=== PATIENT | female | born 1955 | race Caucasian/White ===

== ENCOUNTER → 2020-02-29 14:52 | Outpatient (CLI) | payer MEDICARE, OTHER, SELFPAY ==
--- NOTE | 2020-02-29 | DI.RAD.S_ITS ---
PROCEDURE: XR HIP W PEL IF DONE LT MIN 4V INDICATIONS: HIP PAIN TECHNIQUE: AP pelvis with lateral view(s) of the left and right hip(s). COMPARISON: None. FINDINGS: Bones: No fracture. Lower lumbar spondylosis and facet arthropathy. Mild bilateral hip joint degeneration. Soft tissues: The visualized bowel gas pattern is normal. No suspicious soft tissue calcifications. IMPRESSION: Mild bilateral hip joint degeneration. Lower lumbar spondylosis Dictated by: Danielito Bhatia M.D. on 02/29/2020 at 15:43 Approved by: Danielito Bhatia M.D. on 02/29/2020 at 15:46
== END ==
PROVIDERS: PCP Family Medicine; Referring Provider Family Medicine; Visit Provider Family Medicine
DX: M25.552 Pain in left hip (principal); M16.0 Bilateral primary osteoarthritis of hip; M47.816 Spondylosis without myelopathy or radiculopathy, lumbar region
CPT/HCPCS: 73522

== ENCOUNTER → 2020-03-05 15:21 | Outpatient (CLI) | payer MEDICARE, OTHER, SELFPAY ==
--- NOTE | 2020-03-05 15:24 | DI.RAD.S_ITS ---
PROCEDURE: XR LUMBAR SPINE 2-3V INDICATIONS: LUMBAR PAIN, RADIATING LISSA DOWN HIP AND LEG TECHNIQUE: 3 views of the lumbar spine were acquired. COMPARISON: None. FINDINGS: Bones: 5 [id number] vertebra are present. There is grade 1 anterolisthesis of L4 over L5. Vertebral body heights are maintained with no evidence of compression fracture. The L4-5 and L5-S1 disc spaces are narrowed. There is facet arthrosis at L4-5 and L5-S1. No focal osseous lesions. The sacroiliac joints are normal. Soft tissues: Overlying bowel gas pattern is normal. No suspicious soft tissue calcifications. IMPRESSION: 1. Facet arthrosis at L4-5 and L5-S1 causing grade 1 anterolisthesis of L4-5. 2. Disc space narrowing of L4-5 and L5-S1 consistent with disc disease at these levels. 3. No acute osseous abnormality. Dictated by: Mendel Garcia M.D. on 03/05/2020 at 17:18 Approved by: Mendel Garcia M.D. on 03/05/2020 at 17:21
== END ==
PROVIDERS: PCP Family Medicine; Referring Provider Family Medicine; Visit Provider Family Medicine
DX: M54.5 Low back pain (principal); M47.26 Other spondylosis with radiculopathy, lumbar region; M47.27 Other spondylosis with radiculopathy, lumbosacral region; M43.16 Spondylolisthesis, lumbar region; M48.061 Spinal stenosis, lumbar region without neurogenic claudication; M48.07 Spinal stenosis, lumbosacral region
CPT/HCPCS: 72100

== ENCOUNTER → 2020-03-16 06:26 | Outpatient (CLI) | payer MEDICARE, OTHER, SELFPAY ==
--- NOTE | 2020-03-16 | DI.MRI.S_ITS ---
PROCEDURE: MR LUMBAR SPINE WO CON INDICATIONS: Low back pain TECHNIQUE: Noncontrast sagittal T1 spin echo and T2 fast echo, sagittal STIR, axial T1 and T2 fast spin echo through the lumbar spine. In cases with scoliosis, additional coronal T2 fast spin echo may be performed. COMPARISON: [facility], CR, XR LUMBAR SPINE 2-3V, 03/05/2020, 15:27. FINDINGS: Image quality: Excellent. Alignment and Curvature: 5 lumbar type vertebral bodies are present by plain film. There is mild, grade 1 retrolisthesis of L2 on L3 and L3 on L4. Mild grade 1 anterolisthesis of L4 on L5. Bone Marrow: Marrow is of normal overall signal. No acute vertebral body compression fractures. Mild reactive signal within the endplates adjacent to the L1-L2, L2-L3, L3-L4, L4-L5, and L5-S1 intervertebral discs. There is a well-circumscribed 12 mm high T2 intensity focus within the right L4 pedicle, consistent with a bone cyst. Spinal Cord: Conus medullaris terminates at the lower L1 level. Visualized cord demonstrates normal signal and size. Paraspinous Soft Tissues: No paravertebral masses. L1-L2: Normal appearance. L2-L3: Mild disc height loss and desiccation. Mild diffuse disc bulge. Mild facet and ligamentum flavum hypertrophy. Mild canal stenosis. Mild bilateral foraminal stenosis. L3-L4: Mild disc height loss. Moderate disc desiccation. Mild diffuse disc bulge with superimposed broad-based left posterolateral protrusion. Mild facet and ligamentum flavum hypertrophy. Mild canal stenosis. Moderate subarticular foraminal stenosis bilaterally. L4-L5: Moderate disc height loss and desiccation. Mild diffuse disc bulge. Severe bilateral facet hypertrophy. There is a periarticular cyst arising from the left facet joint, measuring 15 mm transverse by 10 mm anteroposterior, which protrudes into the left lateral recess. There is moderate ligamentum flavum hypertrophy. There is moderate canal stenosis. There is moderate left greater than right foraminal stenosis. There is compression and anterior deviation of the left L5 nerve root within the lateral recess. L5-S1: Moderate disc height loss and desiccation. Mild diffuse disc bulge. Mild bilateral facet hypertrophy. Mild canal stenosis. Mild bilateral foraminal stenosis. IMPRESSION: 1. Multilevel degenerative disc and facet disease, as well as ligamentum flavum hypertrophy and epidural lipomatosis. 2. Mild multilevel canal stenoses. Multilevel foraminal stenoses, worst at L3-L4 and L4-L5 where there are moderate foraminal stenosis. 3. Periarticular cyst arising from the left L4-L5 facet joint, which causes left lateral recess stenosis associated with compression and deviation of the left L5 nerve root as described above. Recommend correlation with clinical symptoms to ascertain relevance of this finding. Dictated by: Norma Carney M.D. on 03/16/2020 at 8:53 Approved by: Norma Carney M.D. on 03/16/2020 at 9:04
== END ==
PROVIDERS: PCP Family Medicine; Referring Provider Family Medicine; Visit Provider Family Medicine
DX: M54.5 Low back pain (principal); M51.36 Other intervertebral disc degeneration, lumbar region; E88.2 Lipomatosis, not elsewhere classified; M48.061 Spinal stenosis, lumbar region without neurogenic claudication
CPT/HCPCS: 72148

== ENCOUNTER → 2020-04-15 13:14 | Outpatient (CLI) | payer MEDICARE, OTHER, SELFPAY ==
[2020-04-15 13:46] LABS: COVID19 -Nasal RAPID Negative (Negative)
== END ==
PROVIDERS: PCP Family Medicine; Visit Provider Surgery
DX: Z20.822 Contact with and (suspected) exposure to COVID-19 (principal); Z01.812 Encounter for preprocedural laboratory examination
CPT/HCPCS: 87635; C9803

== ENCOUNTER 2020-04-18 07:28 | Day surgery (SDC) | payer MEDICARE, OTHER, SELFPAY ==
[2020-04-18] VITALS (7 sets, daily range): BP systolic 110–129; BP diastolic 67–80; PULSE 57–78; RESP 11–18; TEMP 36.6–37.2; O2SAT 94–98; BMI 21.2
[2020-04-18] MEDS: LACTATED RINGERS 1,000 ML 200 ML IV (08:15)
--- NOTE | 2020-04-18 08:27 | PM.HP.1 ---
History of Present Illness History of Present Illness Date Patient Seen: 04/18/20 Time Patient Seen: 08:28 Chief complaint: SDC Narrative: The patient presents for colorectal sreening.They have had multiple prior colonoscopies most recently 5 yrs ago significant for polyps.. No personal or family history of colon cancer. On further history denies any recent gastrointestinal symptoms. No nausea, vomiting, abdominal pain, loss of appetite, unexplained weight loss, change in bowel habits, diarrhea, constipation, melena, hematochezia, or bright red blood per rectum. Patient History Medical History Abnormal Pap smear of cervix Basal cell carcinoma Colon polyps Diabetes mellitus Hearing loss Hyperlipidemia Latent tuberculosis (~04/2010) Osteoporosis Ovarian cyst Squamous cell carcinoma Family & Social History Social History: household members none Tobacco & Substance use: Smoking Status Never smoker alcohol intake current alcohol intake frequency holiday/special occasion Substance Use Type marijuana Meds Home Medications and Allergies Home Medications Medication Instructions Recorded Confirmed Type atorvastatin 10 mg tablet 10 mg PO DAILY 03/14/20 04/18/20 History diazepam 10 mg tablet See Rx Instructions .ROUTE 03/14/20 04/18/20 History .COMPLEX PRN metformin 750 mg tablet,extended 750 mg PO BID 03/14/20 04/18/20 History release 24 hr olopatadine 0.1 % eye drops 2 drp EYE-BOTH BID PRN ml 03/14/20 04/18/20 History rizatriptan 10 mg disintegrating See Rx Instructions PO .COMPLEX PRN 03/14/20 04/18/20 History tablet Calcium 600 600 mg PO BID 04/18/20 04/18/20 History Ocuvite 1 cap PO DAILY 04/18/20 04/18/20 History Allergies Allergy/AdvReac Type Severity Reaction Status Date / Time morphine AdvReac Mild ITCHING Verified 04/18/20 07:38 Review of Systems Review of Systems Narrative: A 10 point review of systems is negative except as noted in the HPI Exam Vital Signs (past 8 hours): - 04/18/20 07:44 Temperature 98.9 F Pulse Rate 72 Respiratory Rate 18 Blood Pressure 126/80 Pulse Oximetry 97 Oxygen Delivery Method Room Air Narrative Exam Narrative: General-no acute distress, well nourished adult woman HEENT-moist mucous membranes, no scleral icterus Neck-supple, no lymphadenopathy Chest- non labored respirations, clear to auscultation bilaterally Cardiac-regular rate no peripheral edema Abdomen-soft, nontender, non distended Extremities-warm, well perfused Neurological-alert and oriented, no focal deficits Assessment & Plan Assessment & Plan narrative: The patient requires colorectal screening and colonoscopy is recommended. Technical details were discussed. Risks, benefits, alternatives explained. Risks including but not limited to myocardial infarction, aspiration, bleeding, pain, missed lesion, incomplete examination, need for further radiographic studies, colonic perforation, and need for major abdominal surgery were discussed. All questions were answered to their satisfaction, and they are in agreement with this plan.
[2020-04-18] MEDS: fentaNYL 250 MCG/5 ML INJ IV (08:58)
[2020-04-18] MEDS: MIDAZOLAM 5 MG/5 ML VIAL IV (08:58)
--- NOTE | 2020-04-18 09:20 | PM.OP.ENDO ---
Operative Date/Time/Diagnoses Date of procedure: 04/18/20 Time of procedure: 09:20 Pre-op diagnosis: personal history of colonic polys Post-op diagnosis: same Procedure & Clinicians Study performed: colonoscopy Indications: personal history of colonic polyps Surgeon: Kian Trujillo Procedure Notes Procedure in detail: Medications: Conscious sedation using 10mg IV midazolam and 300mcg IV of fentanyl The history and physical was performed/updated and the patient is ASA class is 2. The procedure was discussed in detail with the patient. Potential risks complications including infection, bleeding, missed diagnosis, perforation, need for surgery, and were explained. Their questions were answered and informed consent was obtained. Patient was brought to the procedure room and placed standard monitoring equipment. The patient's vital signs were monitored continuously throughout the entire procedure. Prior to starting time-out was performed. The patient was placed in the left lateral recumbent position. Procedural sedation was administered. Examination began with a thorough inspection of the perianal area there was no evidence of fissures, fistulae, external hemorrhoids or cutaneous malignancy. The colonoscopy scope was then placed into the anal canal and was advanced to the cecum, which was identified by the ileocecal valve, the appendiceal orifice and the confluence of the taenia. The scope was then slowly withdrawn examining colon thoroughly in all directions, irrigating it of any residual stool. No masses polyps Previous cecal tattoo observed Grade 2 internal The patient tolerated the procedure well. They will be discharged once criteria are met. The prep was of good/excellent quality. The withdrawl time was 9 minutes. The sedation time was 37 minutes. Findings: internal hemorrhoids Specimen(s): none sent Complications: none Impression: Normal colonoscopy Post-procedure Recommendations: Colonscopy in 10 years Disposition: same day surgery
[2020-04-18] MEDS: SODIUM CHLORIDE 0.9% 1,000 ML 84 ML IV (09:27)
--- NOTE | 2020-04-18 09:44 | SUR.PHASEII ---
Patient c/o nausea and asking for saltine crackers. No active emesis noted. Orders received for zofran. Denies any pain at this time.
[2020-04-18] MEDS: ONDANSETRON 4 MG/2 ML INJ IV (09:48)
--- NOTE | 2020-04-18 10:04 | SUR.PHASEII ---
Patient states that nausea is better and she is ready to be discharged home.
== END 2020-04-18 10:03 | disposition home or self-care (01) ==
PROVIDERS: PCP Family Medicine; Referring Provider Family Medicine; Visit Provider Surgery
PROC: 0DJD8ZZ Inspection of Lower Intestinal Tract, Via Natural or Artificial Opening Endoscopic (ICD-10-PCS; CPT 45378; principal; 2020-04-18 08:30)
DX: Z12.11 Encounter for screening for malignant neoplasm of colon (principal); Z86.010 Personal history of colon polyps; K64.1 Second degree hemorrhoids
CPT/HCPCS: G0105; 99152; 99153; J2250; J2405; J3010

== ENCOUNTER → 2020-04-26 11:53 | Outpatient (CLI) | payer MEDICARE, OTHER, SELFPAY ==
[2020-04-26 13:45] LABS: Alanine Aminotransferase 14 IU/L (<35); Albumin 4.4 g/dL (3.5-5.0); Albumin Globulin Ratio 1.8 (1.0-2.8); Alkaline Phosphatase 45 U/L (38-126); Aspartate Aminotransferase 22 IU/L (14-36); BUN Creatinine Ratio 39.3 (6-22); Bilirubin Total 0.7 mg/dL (0.2-1.3); Blood Urea Nitrogen 22 mg/dL (7-17); Carbon Dioxide 32 mmol/L (22-32); Chloride 100 mmol/L (98-107); Cholesterol 133 mg/dL (140-199); Estimated Glomerular Filt Rate > 60.0 mL/min (>60); Globulin 2.4 g/dL (1.7-4.1); Glucose 113 mg/dL (80-110); HDL Cholesterol 66 mg/dL (40-60); HEMOLYSIS < 15 (0-50); LDL Cholesterol Calculated 50 mg/dL (<100); Potassium 4.2 mmol/L (3.4-5.1); Sodium 136 mmol/L (137-145); Total Protein 6.8 g/dL (6.3-8.2); Triglycerides 85 mg/dL (35-150)
== END ==
PROVIDERS: PCP Family Medicine; Referring Provider Family Medicine; Visit Provider Family Medicine
DX: E11.9 Type 2 diabetes mellitus without complications (principal); E78.5 Hyperlipidemia, unspecified
CPT/HCPCS: 36415; 80053; 80061; 83036

== ENCOUNTER → 2020-05-23 13:51 | Outpatient (CLI) | payer MEDICARE, OTHER, SELFPAY ==
--- NOTE | 2020-05-23 13:53 | DI.RAD.S_ITS ---
PROCEDURE: XR ANKLE LT MIN 3V INDICATIONS: history of left ankle subchondral cyst, ankle pain, impingem TECHNIQUE: 3 views of the ankle were acquired. COMPARISON: None. FINDINGS: Bones: No acute fractures or dislocations. Smooth, well corticated osseous density adjacent to the tip of the lateral malleolus. Ankle mortise is normally aligned. No suspicious bony lesions. Soft tissues: No tibiotalar joint effusion. Achilles tendon appears normal. IMPRESSION: Smooth, well corticated osseous density adjacent to the tip of the lateral malleolus likely related to remote injury versus bony ossicle. Dictated by: Rick Brandt [facility] Interpreted: Daryn Lerma MD on 05/23/2020 at 14:19 Approved by: Daryn Lerma M.D. on 05/23/2020 at 16:15
== END ==
PROVIDERS: PCP Family Medicine; Referring Provider Family Medicine; Visit Provider Family Medicine
DX: M81.0 Age-related osteoporosis without current pathological fracture (principal); E11.9 Type 2 diabetes mellitus without complications; Z82.62 Family history of osteoporosis; M25.872 Other specified joint disorders, left ankle and foot; M19.90 Unspecified osteoarthritis, unspecified site
CPT/HCPCS: 73610; 77080

== ENCOUNTER → 2020-08-10 07:44 | Outpatient (CLI) | payer MEDICARE, OTHER, SELFPAY ==
--- NOTE | 2020-08-10 | DI.MRI.S_ITS ---
PROCEDURE: MR ANKLE LT WO CON INDICATIONS: pain in left ankle and joints of left foot TECHNIQUE: Noncontrast sagittal T1 spin echo and T2 fast spin echo with fat saturation, axial proton density fast spin echo and T2 fast spin echo with fat saturation, coronal T1 spin echo and T2 fast spin echo with fat saturation through the ankle/hindfoot. COMPARISON: [facility], CR, XR ANKLE 3+ VIEWS LEFT, 08/03/2020, 8:45. FINDINGS: Bones and joints: Bones: No marrow contusions or fractures. Coalitions: No hindfoot coalitions. Talar dome: Subchondral marrow edema present within the medial talar dome measuring up to 6 mm in the AP dimension as seen on sagittal pulse sequences. This measures approximately 5 mm on coronal pulse sequences. No definite in situ fragment is seen. Other: No pathologic joint effusions. Medial structures: Posterior tibialis: Intact. Mild tenosynovitis Flexor digitorum longus: Intact. Mild tenosynovitis Flexor hallucis longus: Intact. Posterior tibial neurovascular bundle: Normal. Deltoid ligament complex: Intact. Spring ligament: Intact. Lateral structures: Anterior talofibular ligament: Intact. Calcaneofibular ligament: Mildly thickened suggestive of low-grade chronic sprain. Posterior talofibular ligament: Intact. Anterior tibiofibular ligament: Intact. Posterior tibiofibular ligament: Intact. Intermalleolar ligament: Intact. Tibiofibular syndesmosis: Normal. Peroneus longus: Intact. Peroneus brevis: Thickened appearance, with early longitudinal split tear and tendinopathy at the level of the tip the lateral malleolus. Bony peroneal tubercle and retrotrochlear prominence: Normal. Sinus tarsi: Normal. Anterior structures: Tibialis anterior: Intact. Extensor hallucis longus: Intact. Extensor digitorum longus: Intact. Dorsal talonavicular ligament: Intact. Posterior and plantar structures: Achilles tendon: Minimal distal thickening which is likely chronic tendinosis. There is mild retrocalcaneal bursal fluid. There is also ganglion cyst or synovial cyst at the posterior aspect of the subtalar joint for example image 11/6. Plantar fascia: Minimal medial band plantar fasciitis. This finding technically age unknown. Muscles: No abductor digiti quinti muscle atrophy to suggest Winters neuropathy. IMPRESSION: 6 mm subchondral signal changes involving the medial talar dome, suggestive of early osteoarthritis versus posttraumatic osteochondral lesion of the talus Peroneus brevis tendinopathy and early longitudinal split tearing at the level of the tip the lateral malleolus. Mild posterior tibialis and flexor digitorum longus tenosynovitis. Minimal distal Achilles tendinosis Age-indeterminate minimal medial band plantar fasciitis. Low-grade chronic sprain of the calcaneofibular ligament. Focal fluid collection, possibly ganglion or synovial cyst at the posterior aspect of the subtalar joint. The actual clinical significance is unknown. Please correlate clinically for signs of posterior impingement. Dictated by: Danielito Bhatia M.D. on 08/10/2020 at 9:13 Approved by: Danielito Bhatia M.D. on 08/10/2020 at 9:29
== END ==
PROVIDERS: PCP Family Medicine; Referring Provider Orthopaedic Surgery Foot and Ankle Surgery; Visit Provider Orthopaedic Surgery Foot and Ankle Surgery
DX: M25.572 Pain in left ankle and joints of left foot (principal); S93.412A Sprain of calcaneofibular ligament of left ankle, initial encounter; M65.872 Other synovitis and tenosynovitis, left ankle and foot; S96.812A Strain of other specified muscles and tendons at ankle and foot level, left foot, initial encounter
CPT/HCPCS: 73721

== ENCOUNTER → 2020-08-10 08:39 | Outpatient (CLI) | payer MEDICARE, OTHER, SELFPAY ==
[2020-08-10 10:12] LABS: Hemoglobin A1C% w Est Avg Glu 6.7 % (4.0-6.0)
== END ==
PROVIDERS: PCP Family Medicine; Referring Provider Family Medicine; Visit Provider Family Medicine
DX: E11.9 Type 2 diabetes mellitus without complications (principal)
CPT/HCPCS: 36415; 83036

== ENCOUNTER → 2020-08-18 10:37 | Outpatient (CLI) | payer MEDICARE, OTHER, SELFPAY ==
[2020-08-18 13:06] LABS: BUN Creatinine Ratio 40.3 (6-22); Blood Urea Nitrogen 25 mg/dL (7-17); Calcium 9.4 mg/dL (8.4-10.2); Carbon Dioxide 28 mmol/L (22-32); Chloride 102 mmol/L (98-107); Estimated Glomerular Filt Rate > 60.0 mL/min (>60); Glucose 116 mg/dL (80-110); Potassium 4.5 mmol/L (3.4-5.1); Sodium 136 mmol/L (137-145)
[2020-08-18 13:07] LABS: Alanine Aminotransferase 16 IU/L (<35); Albumin 3.9 g/dL (3.5-5.0); Albumin Globulin Ratio 1.9 (1.0-2.8); Alkaline Phosphatase 57 U/L (38-126); Aspartate Aminotransferase 23 IU/L (14-36); Bilirubin Total 0.3 mg/dL (0.2-1.3); Globulin 2.1 g/dL (1.7-4.1); HEMOLYSIS < 15 (0-50)
[2020-08-18 13:36] LABS: TSH w/ Reflex to FT4 1.87 uIU/mL (0.47-4.68)
[2020-08-19 03:26] LABS: Vitamin D 25 Hydroxy (D3) 56.7 ng/mL (30.0-100.0)
[2020-08-19 03:38] LABS: Calcium Urine Random 26.8 mg/dL
[2020-08-20 10:19] LABS: Tissue Transglutaminase IgA <2 U/mL (0-3); Tissue Transglutaminase IgG 3 U/mL (0-5)
[2020-08-22 15:39] LABS: Albumin 3.8 g/dL (2.9-4.4); Alpha-1-Globulin 0.2 g/dL (0.0-0.4); Alpha-2-Globulin 0.7 g/dL (0.4-1.0); Gamma Globulin 0.6 g/dL (0.4-1.8); Globulin Total 2.3 g/dL (2.2-3.9); Protein, Total 6.1 g/dL (6.0-8.5)
[2020-08-23 03:44] LABS: Deamidated Gliadin IgA 3 units (0-19); Deamidated Gliadin IgG 1 units (0-19); IGA 38 mg/dL (87-352); t-Transglutaminase IgA <2 U/mL (0-3)
== END ==
PROVIDERS: PCP Family Medicine; Referring Provider Family Medicine; Visit Provider Family Medicine
DX: E78.2 Mixed hyperlipidemia (principal); M81.0 Age-related osteoporosis without current pathological fracture; E11.9 Type 2 diabetes mellitus without complications
CPT/HCPCS: 36415; 80053; 82306; 82340; 82533; 82784; 83516; 84155; 84165; 84443; 86255

== ENCOUNTER → 2020-10-14 15:55 | Outpatient (CLI) | payer MEDICARE, OTHER, SELFPAY ==
[2020-10-14 18:35] LABS: BUN Creatinine Ratio 31.7 (6-22); Blood Urea Nitrogen 19 mg/dL (7-17); Calcium 9.5 mg/dL (8.4-10.2); Carbon Dioxide 30 mmol/L (22-32); Chloride 100 mmol/L (98-107); Estimated Glomerular Filt Rate > 60.0 mL/min (>60); Glucose 109 mg/dL (80-110); HEMOLYSIS < 15 (0-50); Potassium 4.2 mmol/L (3.4-5.1); Sodium 138 mmol/L (137-145)
[2020-10-14 18:37] LABS: Hemoglobin A1C% w Est Avg Glu 6.9 % (4.0-6.0)
[2020-10-14 18:41] LABS: Creatinine Urine Random 40.5 mg/dL
[2020-10-14 18:56] LABS: Microalbumin Urine Random < 0.6 mg/dL (0-1.6)
== END ==
PROVIDERS: PCP Family Medicine; Referring Provider Family Medicine; Visit Provider Family Medicine
DX: E11.9 Type 2 diabetes mellitus without complications (principal)
CPT/HCPCS: 36415; 80048; 82043; 82570; 83036

== ENCOUNTER → 2020-10-18 10:26 | Outpatient (CLI) | payer MEDICARE, OTHER, SELFPAY ==
--- NOTE | 2020-10-18 11:30 | DI.CT.S_ITS ---
PROCEDURE: CT ABDOMEN PELVIS W CON INDICATIONS: abdominal pain TECHNIQUE: After the administration of oral and intravenous contrast, axial sections were acquired from the lung bases to the pubic symphysis. Coronal and sagittal reformats were performed. For radiation dose reduction, the following was used: automated exposure control, adjustment of mA and/or kV according to patient size. COMPARISON:None. FINDINGS: Image quality: Excellent. Lung bases: Unremarkable. No hiatal hernia. Heart: No significant findings. ABDOMEN: Liver: Unremarkable. Gallbladder: Unremarkable. Biliary ducts: Nondilated Pancreas: 1.5 x 1.3 x 1.5 cm unilocular cyst in the medial uncinate process of the pancreas. There is focal dilatation of the pancreatic duct near the neck measuring up to 6 mm. The remainder the pancreatic duct is smoothly ectatic measuring 4 mm. Spleen: Unremarkable. Adrenal Glands: Unremarkable. Kidneys and Ureters: Unremarkable. Stomach and Bowel: Stomach, small bowel loops, and colon are unremarkable. Normal appendix. Mildly increased quantity of stool throughout the colon. Peritoneum: No abnormal intraperitoneal fluid. No free air. Ventral Wall: No hernia. Specifically, no abdominal wall defect in the left lower quadrant area of clinical concern. No unusual subcutaneous mass or fluid. Abdominal Nodes: No retroperitoneal or mesenteric adenopathy by size criteria. Vessels: Aorta and inferior vena cava are normal in size. PELVIS: Pelvic Organs: The uterus is normal. Ovaries were not seen. Bladder: Unremarkable. Pelvic Nodes: No enlarged lymph nodes. Miscellaneous: No inguinal hernias are seen. Bones:. Degenerative disc height loss at L5-S1. Grade 1 anterolisthesis L4 on five. IMPRESSION: 1. No ventral abdominal wall hernia in the left lower quadrant, or underlying fluid or mass to explain pain. 2. Increased quantity of stool. 3. Incidental note made of 1.5 cm unilocular pancreatic cyst. Further evaluation with pancreatic protocol contrast-enhanced MRI is recommended. 4. Mild pancreatic ductal dilatation. Dictated by: Melissa Nguyen M.D. on 10/18/2020 at 16:34 Approved by: Melissa Nguyen M.D. on 10/18/2020 at 16:43
== END ==
PROVIDERS: PCP Family Medicine; Referring Provider Family Medicine; Visit Provider Family Medicine
DX: R10.9 Unspecified abdominal pain (principal); K86.2 Cyst of pancreas; K86.89 Other specified diseases of pancreas
CPT/HCPCS: 74177; Q9967

== ENCOUNTER → 2020-10-19 11:58 | Outpatient (CLI) | payer MEDICARE, OTHER, SELFPAY ==
[2020-10-19 12:58] LABS: Add Manual Diff / Slide Review NO; Basophils Absolute Auto 100 /uL (0-100); Basophils Percent Auto 0.9 % (0-2); Eosinophils Absolute Auto 100 /uL (0-450); Eosinophils Percent Auto 0.8 % (2-4); Hematocrit 40.2 % (36-46); Hemoglobin 13.5 g/dL (12.0-16.0); Lymphocytes Absolute Auto 2000 /uL (1100-4500); Lymphocytes Percent Auto 28.6 % (25-40); Mean Corpuscular HGB Conc 33.6 % (30-36); Mean Corpuscular Hemoglobin 29.3 PG (26-34); Mean Corpuscular Volume 87.2 fL (80-100); Monocytes Absolute Auto 500 /uL (0-900); Monocytes Percent Auto 7.2 % (3-14); Neutrophils Absolute Auto 4300 /uL (1500-7000); Neutrophils Percent Auto 62.5 % (50-75); Platelet Count 270 X10^3/uL (150-400); Red Blood Cell Count 4.61 X10^6/uL (4.0-5.2); Red Cell Distribution Width 13.2 % (11.6-14.8); White Blood Cell Count 6.9 X10^3/uL (4.5-11.0)
[2020-10-19 13:48] LABS: Lipase 92 U/L (23-300)
== END ==
PROVIDERS: PCP Family Medicine; Referring Provider Registered Nurse; Visit Provider Registered Nurse
DX: R10.32 Left lower quadrant pain (principal)
CPT/HCPCS: 36415; 83690; 85025

== ENCOUNTER → 2020-10-21 06:57 | Outpatient (CLI) | payer MEDICARE, OTHER, SELFPAY ==
--- NOTE | 2020-10-21 06:58 | DI.MRI.S_ITS ---
PROCEDURE: MR ABDOMEN WO/W CON INDICATIONS: pancreatic cyst TECHNIQUE: Coronal HASTE, axial 2D FLASH in- and [id number]; axial breath-hold T2 FSE with fat saturation from the hepatic dome to the iliac crests. Oblique coronal thin-slice and radial thick slab HASTE through the biliary system. Dynamic axial VIBE during administration of contrast. Post-contrast coronal VIBE or 2D FLASH with fat saturation from the hepatic dome to the iliac crests. Optional diffusion weighted imaging and ADC may be performed. COMPARISON: [facility], CT, CT ABDOMEN PELVIS W CON, 10/18/2020, 11:19. FINDINGS: Image quality: Excellent. Pancreas and biliary system: The cystic structure at the pancreatic neck measures 1.1 cm AP, 1.3 cm transverse and 1.4 cm craniocaudad. It is sharply demarcated. It does not appear to clearly communicate with the pancreatic duct, and is located below the course of the main pancreatic duct. On post-contrast imaging it shows no mural nodularity or internal enhancement. Its left lateral border is slightly tear drop shaped, taper to the left, best seen on postcontrast imaging series 19, image 60. Solid organs: Liver is normal in size and enhancement. Gallbladder appears normal. Spleen is normal in size and enhancement. No adrenal nodules. Kidneys are normal in size and enhancement, without hydronephrosis. Nodes and vessels: No retroperitoneal or mesenteric adenopathy by size criteria. Aorta and inferior vena cava are normal in size. Bowel and peritoneum: Unenhanced bowel loops are normal in caliber throughout. No free fluid. Lung bases: No basal pleural effusions. Heart size is normal. Bones and soft tissues: No ventral hernias. Bone marrow is normal in overall signal. 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 Also, this structure does not clearly communicate to the main pancreatic duct which is located more superiorly. The appearance is nonspecific, chronicity is not yet established. Follow-up MR scanning in 6 months is recommended to assist in establishing benign etiology and stability of appearance over time. Alternatively, if this structure could be accurately visualized by ultrasound a could be followed sequentially by ultrasound. By position, however, this area of the pancreas is frequently poorly seen due to overlying bowel gas. A potential etiology of concern is side branch intraductal papillary mucinous neoplasm but by the imaging findings of this study the likelihood of that diagnosis is considered relatively low. Dictated by: Ulysses Tripp M.D. on 10/21/2020 at 10:58 Approved by: Ulysses Tripp M.D. on 10/21/2020 at 11:13
== END ==
PROVIDERS: PCP Family Medicine; Referring Provider Registered Nurse; Visit Provider Registered Nurse
DX: K86.2 Cyst of pancreas (principal); K86.89 Other specified diseases of pancreas
CPT/HCPCS: 74183

== ENCOUNTER → 2020-12-07 07:12 | Outpatient (CLI) | payer MEDICARE, OTHER, SELFPAY ==
[2020-12-07 08:54] LABS: Add Manual Diff / Slide Review NO; Basophils Absolute Auto 100 /uL (0-100); Basophils Percent Auto 0.8 % (0-2); Eosinophils Absolute Auto 200 /uL (0-450); Eosinophils Percent Auto 2.9 % (2-4); Hematocrit 39.6 % (36-46); Lymphocytes Absolute Auto 2400 /uL (1100-4500); Lymphocytes Percent Auto 35.6 % (25-40); Mean Corpuscular HGB Conc 32.8 % (30-36); Mean Corpuscular Hemoglobin 28.5 PG (26-34); Monocytes Absolute Auto 600 /uL (0-900); Monocytes Percent Auto 8.5 % (3-14); Neutrophils Absolute Auto 3600 /uL (1500-7000); Neutrophils Percent Auto 52.2 % (50-75); Platelet Count 277 X10^3/uL (150-400); Red Blood Cell Count 4.55 X10^6/uL (4.0-5.2); Red Cell Distribution Width 13.3 % (11.6-14.8); White Blood Cell Count 6.8 X10^3/uL (4.5-11.0)
[2020-12-07 09:11] LABS: Alanine Aminotransferase 20 IU/L (<35); Albumin 4.6 g/dL (3.5-5.0); Albumin Globulin Ratio 1.9 (1.0-2.8); Alkaline Phosphatase 54 U/L (38-126); Aspartate Aminotransferase 32 IU/L (14-36); BUN Creatinine Ratio 34.5 (6-22); Bilirubin Total 0.6 mg/dL (0.2-1.3); Blood Urea Nitrogen 19 mg/dL (7-17); Calcium 9.8 mg/dL (8.4-10.2); Carbon Dioxide 33 mmol/L (22-32); Chloride 100 mmol/L (98-107); Estimated Glomerular Filt Rate > 60.0 mL/min (>60); Globulin 2.4 g/dL (1.7-4.1); Glucose 142 mg/dL (80-110); HEMOLYSIS < 15 (0-50); Lipase 86 U/L (23-300); Potassium 4.5 mmol/L (3.4-5.1); Sodium 137 mmol/L (137-145)
[2020-12-08 06:11] LABS: Immunoglobulin A 41 mg/dL (87-352); Immunoglobulin G, Quantitative 643 mg/dL (586-1602); Immunoglobulin M, Quantitative 55 mg/dL (26-217)
== END ==
PROVIDERS: PCP Family Medicine; Referring Provider Family Medicine; Visit Provider Family Medicine
DX: D80.2 Selective deficiency of immunoglobulin A [IgA] (principal); E11.9 Type 2 diabetes mellitus without complications; R10.32 Left lower quadrant pain; E78.2 Mixed hyperlipidemia; K86.2 Cyst of pancreas
CPT/HCPCS: 36415; 80053; 82784; 83690; 85025

== ENCOUNTER → 2021-01-13 08:23 | Outpatient (CLI) | payer MEDICARE, OTHER, SELFPAY ==
--- NOTE | 2021-01-13 08:24 | DI.NM.S_ITS ---
PROCEDURE: NM GASTRIC EMPTYING STUDY RADIOPHARMACEUTICAL: 1.1 mCi Tc-99m sulfur colloid in an egg sandwich. INDICATIONS: constipation, gastroparesis TECHNIQUE: A Tc-99m labeled sulfur colloid labeled egg sandwich or oatmeal was served to the patient. Anterior and posterior planar images of the abdomen were obtained at 0 minutes and 30 minutes, then at hourly intervals up to 4 hours. The patient was upright and ambulating during the interval. COMPARISON: [facility], CT, CT ABDOMEN PELVIS W CON, 10/18/2020, 11:19. FINDINGS: The stomach has normal size, morphology, and position. There is normal emptying of solid gastric contents from the stomach by visual inspection. No gastroesophageal reflux is visualized. The percentage of tracer retained at specific time points are as follows: Time point Percent gastric retention Normal range 30 minutes 70% 70% or more 1 hour 34% 30% to 90% 2 hours 12% 60% or less 3 hours 8% 30% or less 4 hours - 10% or less IMPRESSION: Normal gastric emptying study Dictated by: Cari Santana M.D. on 01/13/2021 at 13:15 Approved by: Cari Santana M.D. on 01/13/2021 at 13:17
== END ==
PROVIDERS: PCP Family Medicine; Referring Provider Family Medicine; Visit Provider Family Medicine
DX: K59.00 Constipation, unspecified (principal); D80.2 Selective deficiency of immunoglobulin A [IgA]; R10.32 Left lower quadrant pain; E11.9 Type 2 diabetes mellitus without complications
CPT/HCPCS: 78264; A9541

== ENCOUNTER → 2021-03-15 13:57 | Outpatient (CLI) | payer MEDICARE, OTHER, SELFPAY ==
[2021-03-15 16:36] LABS: Hemoglobin A1C% w Est Avg Glu 7.2 % (4.0-6.0)
[2021-03-15 17:12] LABS: BUN Creatinine Ratio 29.3 (6-22); Blood Urea Nitrogen 17 mg/dL (7-17); Calcium 9.7 mg/dL (8.4-10.2); Carbon Dioxide 32 mmol/L (22-32); Chloride 102 mmol/L (98-107); Estimated Glomerular Filt Rate > 60.0 mL/min (>60); Glucose 120 mg/dL (80-110); HEMOLYSIS < 15 (0-50); Potassium 3.8 mmol/L (3.4-5.1); Sodium 137 mmol/L (137-145)
[2021-03-15 17:35] LABS: Appearance Urine UA CLEAR; Bilirubin Urine UA NEGATIVE (NEGATIVE); Color Urine UA YELLOW; Glucose Urine UA TRACE g/dL (Negative); Ketones Urine UA NEGATIVE (NEGATIVE); Leukocyte Esterase Urine UA NEGATIVE (NEGATIVE); Nitrite Urine UA NEGATIVE (Negative); Occult Blood Urine UA TRACE-LYSED (Negative); Protein Urine UA NEGATIVE (Negative); Specific Gravity Urine UA 1.015 (1.000-1.035); Urobilinogen Urine UA 0.2 E.U./dL (0.2)
[2021-03-15 17:49] LABS: Bacteria Urine None Seen; Culture Indicated Urine Cult Not Indicated; RBC Urine None Seen (0-5/HPF); Squamous Epithelial Cell Urine 0-1 /HPF (0-5/HPF); Transitional Epi Cells Urine 0-1/HPF (0-5/HPF); WBC Urine None Seen (0-5/HPF)
== END ==
PROVIDERS: PCP Family Medicine; Referring Provider Family Medicine; Visit Provider Family Medicine
DX: E11.9 Type 2 diabetes mellitus without complications (principal)
CPT/HCPCS: 36415; 80048; 81001; 83036

== ENCOUNTER → 2021-05-05 11:29 | Outpatient (CLI) | payer MEDICARE, OTHER, SELFPAY ==
--- NOTE | 2021-05-05 11:39 | DI.CT.S_ITS ---
PROCEDURE: CT SINUS SCREEN WO CON INDICATIONS: CHRONIC SINUSITIS TECHNIQUE: Noncontrast 3.0 mm axial images acquired from the frontal sinuses to the mid-sella, with coronal and sagittal reformats. For radiation dose reduction, the following was used: automated exposure control, adjustment of mA and/or kV according to patient size. COMPARISON: None. FINDINGS: Image quality: Excellent. Maxillary Sinuses: No bony remodeling or destruction. The entire medial wall of the right maxillary sinus has been removed. Portions of the medial wall of the left maxillary sinus have been removed. Ethmoid Air Cells: No bony remodeling or destruction. Portions of the ethmoid air cell septations have been removed. Sphenoid Sinuses: No bony remodeling or destruction. Sinuses are clear. Frontal Sinuses: No bony remodeling or destruction. Sinuses are clear. Ostiomeatal Complexes: Removed on both sides. Miscellaneous: Visualized intra-orbital contents are normal. There is been removal of the superior metal, and large portions of the inferior right turbinates. IMPRESSION: No significant active paranasal sinus disease is seen. Prior postoperative changes are seen, which are more extensive on the right than on the left. Dictated by: Marcelino Cabezas M.D. on 05/05/2021 at 11:03 Approved by: Marcelino Cabezas M.D. on 05/05/2021 at 11:04
[2021-05-05 15:50] LABS: Add Manual Diff / Slide Review NO; Basophils Absolute Auto 0 /uL (0-100); Basophils Percent Auto 0.6 % (0-2); Eosinophils Absolute Auto 100 /uL (0-450); Eosinophils Percent Auto 1.9 % (2-4); Hematocrit 37.3 % (36-46); Hemoglobin 12.8 g/dL (12.0-16.0); Lymphocytes Absolute Auto 2000 /uL (1100-4500); Lymphocytes Percent Auto 27.8 % (25-40); Mean Corpuscular HGB Conc 34.4 % (30-36); Mean Corpuscular Hemoglobin 29.5 PG (26-34); Mean Corpuscular Volume 85.9 fL (80-100); Monocytes Absolute Auto 600 /uL (0-900); Monocytes Percent Auto 8.4 % (3-14); Neutrophils Absolute Auto 4500 /uL (1500-7000); Neutrophils Percent Auto 61.3 % (50-75); Platelet Count 263 X10^3/uL (150-400); Red Blood Cell Count 4.34 X10^6/uL (4.0-5.2); Red Cell Distribution Width 13.7 % (11.6-14.8); White Blood Cell Count 7.3 X10^3/uL (4.5-11.0)
[2021-05-05 16:08] LABS: Alanine Aminotransferase 20 IU/L (<35); Albumin 4.4 g/dL (3.5-5.0); Albumin Globulin Ratio 1.8 (1.0-2.8); Alkaline Phosphatase 44 U/L (38-126); Aspartate Aminotransferase 27 IU/L (14-36); BUN Creatinine Ratio 20.6 (6-22); Bilirubin Total 0.5 mg/dL (0.2-1.3); Blood Urea Nitrogen 22 mg/dL (7-17); C-Reactive Protein Quant < 0.5 mg/dL (<1.0); Calcium 9.4 mg/dL (8.4-10.2); Carbon Dioxide 31 mmol/L (22-32); Chloride 98 mmol/L (98-107); Estimated Glomerular Filt Rate 51.1 mL/min (>60); Globulin 2.4 g/dL (1.7-4.1); Glucose 127 mg/dL (80-110); HEMOLYSIS < 15 (0-50); Potassium 4.1 mmol/L (3.4-5.1); Sodium 136 mmol/L (137-145); Total Protein 6.8 g/dL (6.3-8.2)
[2021-05-05 16:15] LABS: Erythrocyte Sedimentation Rate 6 MM/HR (0-20)
[2021-05-05 17:02] LABS: Free T4, Direct Thyroxine 1.12 ng/dL (0.78-2.19)
[2021-05-05 17:15] LABS: TSH w/ Reflex to FT4 1.15 uIU/mL (0.47-4.68)
[2021-05-06 08:35] LABS: Thyroid Peroxidase Antibodies 8 IU/mL (0-34)
[2021-05-09 19:02] LABS: ANA Screen, IFA Negative (.)
== END ==
PROVIDERS: PCP Family Medicine; Referring Provider Physician Assistant; Visit Provider Physician Assistant
DX: J32.9 Chronic sinusitis, unspecified (principal); D80.2 Selective deficiency of immunoglobulin A [IgA]
CPT/HCPCS: 36415; 70486; 80053; 84439; 84443; 85025; 85651; 86038; 86140; 86376

== ENCOUNTER → 2021-06-23 07:55 | Outpatient (CLI) | payer MEDICARE, OTHER, SELFPAY ==
[2021-06-23 09:05] LABS: Add Manual Diff / Slide Review NO; Basophils Absolute Auto 100 /uL (0-100); Eosinophils Absolute Auto 100 /uL (0-450); Hematocrit 38.9 % (36-46); Hemoglobin 13.2 g/dL (12.0-16.0); Lymphocytes Absolute Auto 2100 /uL (1100-4500); Lymphocytes Percent Auto 39.1 % (25-40); Mean Corpuscular HGB Conc 33.9 % (30-36); Mean Corpuscular Hemoglobin 29.4 PG (26-34); Mean Corpuscular Volume 86.7 fL (80-100); Monocytes Absolute Auto 500 /uL (0-900); Monocytes Percent Auto 10.1 % (3-14); Neutrophils Absolute Auto 2500 /uL (1500-7000); Neutrophils Percent Auto 47.8 % (50-75); Platelet Count 266 X10^3/uL (150-400); Red Blood Cell Count 4.48 X10^6/uL (4.0-5.2); Red Cell Distribution Width 13.1 % (11.6-14.8); White Blood Cell Count 5.3 X10^3/uL (4.5-11.0)
[2021-06-23 09:18] LABS: Alanine Aminotransferase 23 IU/L (<35); Albumin 4.4 g/dL (3.5-5.0); Alkaline Phosphatase 48 U/L (38-126); Aspartate Aminotransferase 31 IU/L (14-36); BUN Creatinine Ratio 27.7 (6-22); Bilirubin Total 0.6 mg/dL (0.2-1.3); Blood Urea Nitrogen 18 mg/dL (7-17); Calcium 9.5 mg/dL (8.4-10.2); Carbon Dioxide 30 mmol/L (22-32); Chloride 101 mmol/L (98-107); Estimated Glomerular Filt Rate > 60.0 mL/min (>60); Globulin 2.2 g/dL (1.7-4.1); Glucose 129 mg/dL (80-110); HEMOLYSIS < 15 (0-50); Potassium 4.2 mmol/L (3.4-5.1); Sodium 138 mmol/L (137-145); Total Protein 6.6 g/dL (6.3-8.2); Uric Acid 3.5 mg/dL (2.5-6.2)
[2021-06-23 09:21] LABS: Erythrocyte Sedimentation Rate 5 MM/HR (0-20)
[2021-06-23 09:22] LABS: High Sensitivity CRP - Cardiac 0.6 mg/L (1.0-3.0)
[2021-06-23 09:23] LABS: Rheumatoid Factor < 8.6 IU/mL (<12.0)
[2021-06-23 09:53] LABS: Thyroid Stimulating Hormone 2.06 uIU/mL (0.47-4.68)
[2021-06-25 00:20] LABS: SS A Ro Sjogrens Antibody < 0.2 AI (0.0-0.9); SS B La Sjogrens Antibody < 0.2 AI (0.0-0.9)
[2021-06-27 15:51] LABS: ANA Screen, IFA Negative (.)
== END ==
PROVIDERS: PCP Family Medicine; Referring Provider Ophthalmology; Visit Provider Ophthalmology
DX: M35.00 Sjogren syndrome, unspecified (principal)
CPT/HCPCS: 36415; 80053; 84443; 84550; 85025; 85651; 86038; 86140; 86235; 86430

== ENCOUNTER → 2021-09-21 09:56 | Outpatient (CLI) | payer MEDICARE, OTHER, SELFPAY ==
--- NOTE | 2021-09-21 09:57 | DI.MG.S_ITS ---
BILATERAL DIGITAL SCREENING MAMMOGRAM 3D/2D WITH CAD: 09/21/2021 CLINICAL: Routine screening. Comparison is made to exams dated: 09/20/2020 mammogram, 09/17/2019 mammogram, and 07/03/2018 mammogram - outside. There are scattered fibroglandular elements in both breasts. Current study was also evaluated with a Computer Aided Detection (CAD) system. No significant masses, calcifications, or other findings are seen in either breast. There has been no significant interval change. IMPRESSION: NEGATIVE There is no mammographic evidence of malignancy. A 1 year screening mammogram is recommended. Based on the Tyrer Cuzick model (a risk assessment model) the patient's lifetime risk is 6.3% and her 10 year risk is 3.5%. According to the ACR, ACS, and NCCN guidelines, an annual breast MRI exam along with mammogram is recommended if the patient's lifetime risk is 20% or greater. This exam was interpreted at Station ID: [id number]. NOTE: For mammograms, a report in lay terms will be sent to the patient. Approximately 15% of breast malignancies will not be visualized mammographically. In the management of a palpable breast mass, a negative mammogram must not discourage biopsy of a clinically suspicious lesion. Electronically Signed By: Melissa michel/riri:09/21/2021 12:39:47 letter sent: Normal Exam ACR BI-RADS Category 1: Negative [id number]
== END ==
PROVIDERS: PCP Family Medicine; Referring Provider Pediatrics; Visit Provider Family Medicine
DX: Z12.31 Encounter for screening mammogram for malignant neoplasm of breast (principal)
CPT/HCPCS: 77063; 77067

== ENCOUNTER → 2021-09-28 07:57 | Outpatient (CLI) | payer MEDICARE, OTHER, SELFPAY ==
[2021-09-28 09:31] LABS: BUN Creatinine Ratio 35.7 (6-22); Blood Urea Nitrogen 25 mg/dL (7-17); Calcium 9.1 mg/dL (8.4-10.2); Carbon Dioxide 28 mmol/L (22-32); Chloride 101 mmol/L (98-107); Cholesterol 147 mg/dL (140-199); Estimated Glomerular Filt Rate > 60 mL/min (>60); Glucose 136 mg/dL (80-110); HDL Cholesterol 66 mg/dL (40-60); HEMOLYSIS < 15 (0-50); LDL Cholesterol Calculated 65 mg/dL (<100); Potassium 4.6 mmol/L (3.4-5.1); Sodium 137 mmol/L (137-145); Triglycerides 79 mg/dL (35-150)
[2021-09-28 09:38] LABS: Hemoglobin A1C% w Est Avg Glu 6.8 % (4.0-6.0)
[2021-09-28 09:50] LABS: Appearance Urine UA CLEAR; Bilirubin Urine UA NEGATIVE (NEGATIVE); Color Urine UA YELLOW; Glucose Urine UA 2+ g/dL (Negative); Ketones Urine UA NEGATIVE (NEGATIVE); Leukocyte Esterase Urine UA NEGATIVE (NEGATIVE); Nitrite Urine UA NEGATIVE (Negative); Occult Blood Urine UA NEGATIVE (Negative); Protein Urine UA NEGATIVE (Negative); Urobilinogen Urine UA 0.2 E.U./dL (0.2)
[2021-09-28 10:03] LABS: Bacteria Urine None Seen; Culture Indicated Urine Cult Not Indicated; RBC Urine None Seen (0-5/HPF); Urine Comments Microscopic Normal; WBC Urine None Seen (0-5/HPF)
[2021-09-28 10:12] LABS: Creatinine Urine Random 62.8 mg/dL
[2021-09-28 10:17] LABS: Microalbumi Creatinin Ratio Ur 9.5 ug/mg CR (<30); Microalbumin Urine Random 0.6 mg/dL (0-1.6)
[2021-09-29 02:07] LABS: Immunoglobulin A 53 mg/dL (87-352)
== END ==
PROVIDERS: PCP Family Medicine; Referring Provider Family Medicine; Visit Provider Family Medicine
DX: D80.2 Selective deficiency of immunoglobulin A [IgA] (principal); E11.9 Type 2 diabetes mellitus without complications; E78.5 Hyperlipidemia, unspecified; R30.0 Dysuria
CPT/HCPCS: 80048; 80061; 81001; 82043; 82570; 82784; 83036

== ENCOUNTER → 2022-01-01 06:50 | Outpatient (CLI) | payer MEDICARE, OTHER, SELFPAY ==
[2022-01-01 09:25] LABS: Hemoglobin A1C% w Est Avg Glu 6.4 % (4.0-6.0)
[2022-01-01 09:47] LABS: BUN Creatinine Ratio 42.5 (6-22); Blood Urea Nitrogen 31 mg/dL (7-17); Carbon Dioxide 28 mmol/L (22-32); Chloride 100 mmol/L (98-107); Estimated Glomerular Filt Rate > 60 mL/min (>60); Glucose 124 mg/dL (80-110); HEMOLYSIS < 15 (0-50); Potassium 4.5 mmol/L (3.4-5.1); Sodium 137 mmol/L (137-145)
== END ==
PROVIDERS: PCP Family Medicine; Referring Provider Family Medicine; Visit Provider Family Medicine
DX: E11.9 Type 2 diabetes mellitus without complications (principal); E78.2 Mixed hyperlipidemia
CPT/HCPCS: 36415; 80048; 83036

== ENCOUNTER → 2022-05-09 12:59 | Outpatient (CLI) | payer MEDICARE, OTHER, SELFPAY ==
--- NOTE | 2022-05-09 13:02 | DI.RAD.S_ITS ---
PROCEDURE: XR LUMBAR SPINE 2-3V INDICATIONS: lumbar spine TECHNIQUE: 3 views of the lumbar spine were acquired. COMPARISON: [facility], , XR LUMBAR SPINE 2-3V, 03/05/2020, 15:27. FINDINGS: Bones: 5 [id number] vertebrae are present. There is normal bony alignment. No vertebral body compression fractures. No suspicious bony lesions. Leftward curvature of the thoracolumbar spine measuring 5?. There is facet arthrosis in the lower lumbar spine. Grade 1 anterolisthesis of L4-5. No disc space narrowing. There is disc space narrowing of L4-5 and L5-S1. Soft tissues: Overlying bowel gas pattern is normal. No suspicious soft tissue calcifications. IMPRESSION: 1. Facet arthrosis in the lower lumbar spine with grade 1 anterolisthesis of L4-5. 2. Disc space narrowing of L4-5 and L5-S1. 3. Mild leftward curvature of the lumbar spine. Dictated by: Mendel Garcia M.D. on 05/09/2022 at 14:46 Approved by: Mendel Garcia M.D. on 05/09/2022 at 14:50
== END ==
PROVIDERS: PCP Family Medicine; Referring Provider Nurse Practitioner Family; Visit Provider Nurse Practitioner Family
DX: M47.816 Spondylosis without myelopathy or radiculopathy, lumbar region (principal); M43.16 Spondylolisthesis, lumbar region; M48.061 Spinal stenosis, lumbar region without neurogenic claudication; M48.07 Spinal stenosis, lumbosacral region; M54.50 Low back pain, unspecified; Z98.890 Other specified postprocedural states
CPT/HCPCS: 72100

== ENCOUNTER → 2022-06-14 08:26 | Outpatient (CLI) | payer MEDICARE, OTHER, SELFPAY ==
[2022-06-14 09:24] LABS: Add Manual Diff / Slide Review NO; Basophils Absolute Auto 100 /uL (0-100); Basophils Percent Auto 0.8 % (0-2); Eosinophils Absolute Auto 100 /uL (0-450); Eosinophils Percent Auto 1.8 % (2-4); Hematocrit 40.5 % (36-46); Hemoglobin 13.7 g/dL (12.0-16.0); Lymphocytes Absolute Auto 1900 /uL (1100-4500); Lymphocytes Percent Auto 30.4 % (25-40); Mean Corpuscular HGB Conc 33.8 % (30-36); Mean Corpuscular Hemoglobin 29.1 PG (26-34); Mean Corpuscular Volume 86.1 fL (80-100); Monocytes Absolute Auto 500 /uL (0-900); Neutrophils Absolute Auto 3600 /uL (1500-7000); Platelet Count 267 X10^3/uL (150-400); Red Cell Distribution Width 13.7 % (11.6-14.8); White Blood Cell Count 6.1 X10^3/uL (4.5-11.0)
[2022-06-14 09:36] LABS: Alanine Aminotransferase 25 IU/L (<35); Albumin 4.1 g/dL (3.5-5.0); Albumin Globulin Ratio 1.8 (1.0-2.8); Alkaline Phosphatase 59 U/L (38-126); Aspartate Aminotransferase 29 IU/L (14-36); Bilirubin Total 0.7 mg/dL (0.2-1.3); Blood Urea Nitrogen 26 mg/dL (7-17); Calcium 9.1 mg/dL (8.4-10.2); Carbon Dioxide 30 mmol/L (22-32); Chloride 100 mmol/L (98-107); Cholesterol 137 mg/dL (140-199); Estimated Glomerular Filt Rate > 60 mL/min (>60); Globulin 2.3 g/dL (1.7-4.1); Glucose 130 mg/dL (80-110); HDL Cholesterol 77 mg/dL (40-60); HEMOLYSIS < 15 (0-50); LDL Cholesterol Calculated 45 mg/dL (<100); Sodium 137 mmol/L (137-145); Total Protein 6.4 g/dL (6.3-8.2); Triglycerides 77 mg/dL (35-150)
[2022-06-14 10:04] LABS: Vitamin D 25 Hydroxy (D3) 50.7 ng/mL (30.0-100.0)
[2022-06-15 09:38] LABS: Labcorp Hemoglobin (Hb) A1c 7.1 % (4.8-5.6)
== END ==
PROVIDERS: PCP Family Medicine; Referring Provider Family Medicine; Visit Provider Family Medicine
DX: M81.0 Age-related osteoporosis without current pathological fracture; E11.9 Type 2 diabetes mellitus without complications; E78.2 Mixed hyperlipidemia
CPT/HCPCS: 80053; 80061; 82306; 83036; 85025

== ENCOUNTER → 2022-08-28 09:04 | Outpatient (CLI) | payer MEDICARE, OTHER, SELFPAY ==
[2022-08-28 10:23] LABS: Hematocrit 39.3 % (36-46); Hemoglobin 13.3 g/dL (12.0-16.0); Mean Corpuscular HGB Conc 33.9 % (30-36); Mean Corpuscular Hemoglobin 29.1 PG (26-34); Mean Corpuscular Volume 85.6 fL (80-100); Platelet Count 289 X10^3/uL (150-400); Red Blood Cell Count 4.59 X10^6/uL (4.0-5.2); Red Cell Distribution Width 13.1 % (11.6-14.8); White Blood Cell Count 7.1 X10^3/uL (4.5-11.0)
[2022-08-28 10:50] LABS: Alanine Aminotransferase 21 IU/L (<35); Albumin 4.1 g/dL (3.5-5.0); Albumin Globulin Ratio 1.7 (1.0-2.8); Alkaline Phosphatase 55 U/L (38-126); Aspartate Aminotransferase 26 IU/L (14-36); BUN Creatinine Ratio 29.9 (6-22); Blood Urea Nitrogen 20 mg/dL (7-17); Calcium 9.3 mg/dL (8.4-10.2); Carbon Dioxide 29 mmol/L (22-32); Chloride 97 mmol/L (98-107); Estimated Glomerular Filt Rate > 60 mL/min (>60); Globulin 2.4 g/dL (1.7-4.1); Glucose 107 mg/dL (80-110); HEMOLYSIS < 15 (0-50); Lipase 89 U/L (23-300); Potassium 4.5 mmol/L (3.4-5.1); Sodium 134 mmol/L (137-145); Total Protein 6.5 g/dL (6.3-8.2)
[2022-08-29 03:15] LABS: Labcorp Hemoglobin (Hb) A1c 6.9 % (4.8-5.6)
[2022-08-29 03:45] LABS: Fructosamine 261 umol/L (0-285)
== END ==
PROVIDERS: PCP Family Medicine; Referring Provider Family Medicine; Visit Provider Family Medicine
DX: D80.2 Selective deficiency of immunoglobulin A [IgA] (principal); E11.9 Type 2 diabetes mellitus without complications; E78.2 Mixed hyperlipidemia; T88.7XXA Unspecified adverse effect of drug or medicament, initial encounter; M25.50 Pain in unspecified joint
CPT/HCPCS: 36415; 80053; 82985; 83036; 83690; 85027

== ENCOUNTER → 2022-10-09 09:59 | Outpatient (CLI) | payer MEDICARE, OTHER, SELFPAY ==
--- NOTE | 2022-10-09 10:00 | DI.MG.S_ITS ---
BILATERAL DIGITAL SCREENING MAMMOGRAM 3D/2D WITH CAD: 10/09/2022 CLINICAL: Routine screening. Comparison is made to exams dated: 09/21/2021 mammogram - [facility], 09/20/2020 mammogram, 09/17/2019 mammogram, and 07/03/2018 mammogram - outside. There are scattered areas of fibroglandular density in both breasts (category b / 25%-50% glandular tissue). Current study was also evaluated with a Computer Aided Detection (CAD) system. No significant masses, calcifications, or other findings are seen in either breast. There has been no significant interval change. IMPRESSION: NEGATIVE There is no mammographic evidence of malignancy. A 1 year screening mammogram is recommended. Based on the Tyrer Cuzick model (a risk assessment model) the patient's lifetime risk is 6.0% and her 10 year risk is 3.5%. According to the ACR, ACS, and NCCN guidelines, an annual breast MRI exam along with mammogram is recommended if the patient's lifetime risk is 20% or greater. This exam was interpreted at Station ID: [id number]. NOTE: For mammograms, a report in lay terms will be sent to the patient. Approximately 15% of breast malignancies will not be visualized mammographically. In the management of a palpable breast mass, a negative mammogram must not discourage biopsy of a clinically suspicious lesion. Electronically Signed By: Piotr sims/riri:10/09/2022 13:36:39 letter sent: Normal Exam ACR BI-RADS Category 1: Negative 3341F
== END ==
PROVIDERS: PCP Family Medicine; Referring Provider Family Medicine; Visit Provider Family Medicine
DX: Z12.31 Encounter for screening mammogram for malignant neoplasm of breast (principal)
CPT/HCPCS: 77063; 77067

== ENCOUNTER → 2022-10-30 14:01 | Outpatient (CLI) | payer MEDICARE, OTHER, SELFPAY ==
[2022-10-30 15:21] LABS: Alanine Aminotransferase 20 IU/L (<35); Albumin 4.3 g/dL (3.5-5.0); Alkaline Phosphatase 65 U/L (38-126); Aspartate Aminotransferase 27 IU/L (14-36); BUN Creatinine Ratio 21.3 (6-22); Bilirubin Total 0.8 mg/dL (0.2-1.3); Blood Urea Nitrogen 17 mg/dL (7-17); Calcium 9.6 mg/dL (8.4-10.2); Carbon Dioxide 29 mmol/L (22-32); Chloride 96 mmol/L (98-107); Estimated Glomerular Filt Rate > 60 mL/min (>60); Globulin 2.2 g/dL (1.7-4.1); Glucose 105 mg/dL (80-110); HEMOLYSIS < 15 (0-50); Potassium 3.7 mmol/L (3.4-5.1); Sodium 133 mmol/L (137-145); Total Protein 6.5 g/dL (6.3-8.2)
[2022-10-31 06:16] LABS: Fructosamine 264 umol/L (0-285)
== END ==
PROVIDERS: PCP Family Medicine; Referring Provider Family Medicine; Visit Provider Family Medicine
DX: E11.9 Type 2 diabetes mellitus without complications (principal); E78.2 Mixed hyperlipidemia
CPT/HCPCS: 36415; 80053; 82985

== ENCOUNTER → 2022-11-02 16:33 | Outpatient (CLI) | payer MEDICARE, OTHER, SELFPAY ==
--- NOTE | 2022-11-02 16:34 | DI.RAD.S_ITS ---
PROCEDURE: XR SHOULDER LT MIN 2V INDICATIONS: left shoulder pain TECHNIQUE: 3 views of the shoulder were acquired. COMPARISON: None. FINDINGS: Bones: No fractures or dislocations. No suspicious bony lesions. Visualized ribs appear intact. Mild acromioclavicular and glenohumeral joint degeneration. Soft tissues: No suspicious soft tissue calcifications. IMPRESSION: Mild acromioclavicular and glenohumeral joint degeneration. No acute osseous abnormality. If pain persists with conservative management, consider repeat x-ray in 10-14 days or cross-sectional imaging. Dictated by: Rick NETTLES Interpreted: Kashif Lama MD on 11/02/2022 at 16:54 Transcribed by: FELIPE on 11/02/2022 at 16:55 Approved by: Kashif Lama M.D. on 11/02/2022 at 17:05
== END ==
PROVIDERS: PCP Family Medicine; Referring Provider Family Medicine; Visit Provider Family Medicine
DX: M19.012 Primary osteoarthritis, left shoulder (principal); M25.512 Pain in left shoulder; G89.29 Other chronic pain
CPT/HCPCS: 73030

== ENCOUNTER → 2022-11-29 13:50 | Outpatient (CLI) | payer MEDICARE, OTHER, SELFPAY ==
[2022-11-29 14:27] LABS: Hemoglobin A1C% w Est Avg Glu 6.2 % (4.0-6.0)
[2022-11-29 15:43] LABS: Microalbumin Urine Random 1.8 mg/dL (0-1.6)
[2022-11-29 15:47] LABS: Creatinine Urine Random 111.6 mg/dL; Microalbumi Creatinin Ratio Ur 16.1 ug/mg CR (<30)
== END ==
PROVIDERS: Family Provider Family Medicine; PCP Family Medicine; Referring Provider Family Medicine; Visit Provider Family Medicine
DX: E11.9 Type 2 diabetes mellitus without complications (principal)
CPT/HCPCS: 36415; 82043; 82570; 83036

== ENCOUNTER → 2022-12-25 15:59 | Outpatient (CLI) | payer MEDICARE, OTHER, SELFPAY ==
[2022-12-25 17:47] LABS: BUN Creatinine Ratio 40.9 (6-22); Blood Urea Nitrogen 27 mg/dL (7-17); Calcium 9.6 mg/dL (8.4-10.2); Carbon Dioxide 27 mmol/L (22-32); Chloride 100 mmol/L (98-107); Estimated Glomerular Filt Rate > 60 mL/min (>60); Glucose 132 mg/dL (80-110); HEMOLYSIS < 15 (0-50); Potassium 3.8 mmol/L (3.4-5.1); Sodium 136 mmol/L (137-145)
== END ==
PROVIDERS: Family Provider Family Medicine; PCP Family Medicine; Referring Provider Family Medicine; Visit Provider Family Medicine
DX: R79.89 Other specified abnormal findings of blood chemistry (principal)
CPT/HCPCS: 36415; 80048

== ENCOUNTER 2023-01-10 13:30 | Outpatient (RCR) | payer MEDICARE, OTHER, SELFPAY ==
--- NOTE | 2022-11-30 12:19 | PT.OPPOC ---
Physical, Occupational & Speech Therapy At [facility] Current Diagnoses Other chronic pain (11/30/22) Pain in left shoulder (11/30/22) Visit Care Team Role Provider Type Katelyn Anderson DO Attending Provider Physician Family Provider Primary Care Provider Referring Provider Specialty: Medical Address: [address] [place] [address], [address], [place], [address] Email: [email or web address] Plan Of Care PT-OP-T Assessment and Plan Start: 11/30/22 12:18 Freq: Status: Active Protocol: Document 11/30/22 12:19 AM (Rec: 11/30/22 14:17 AM [id number]) Physical Therapy Assessment Rehab Potential Rehabilitation Potential Excellent Evaluation Complexity Number of Personal Factors/Comorbidities 0 Number of Body Systems Impaired 1-2 Clinical Presentation at Evaluation Stable Impairments Impairments Activity Tolerance, Coordination,Functional Activities,Functional Mobility ,Pain,Posture,Soft Tissue Mobility,Strength Goals Plank Impairment Pt unable to achieve plank position without scapular winging. Short Term Goal (STG) Pt able to hold plank position on knees for 30 seconds with good scapular control. STG Duration 12/20/22 Fci Goal (LTG) Pt able to hold plank position on feet for 30 seconds with good scapular control. LTG Duration 01/11/23 Pain Impairment Pain rating Impairment Pt reports pain at 7/10 at the worst. Short Term Goal (STG) Pt with 4/10 L shoulder pain at the worst. STG Duration 12/20/22 Project Scheduler Goal (LTG) Pt with 2/10 L shoulder pain reported at worst. LTG Duration 01/11/23 Quick dash Impairment Shoulder disability Impairment Pt with 27% shoulder disability per Quick dash Fci Goal (LTG) Pt with less than 15% shoulder disability per Quick dash. LTG Duration 01/11/23 Push-up Impairment Pt unable to do a push-up secondary to discomfort Short Term Goal (STG) Pt able to do 10 wall push-ups without scapular winging. STG Duration 12/20/22 Fci Goal (LTG) Pt able to do modified push-up on knees without scapular winging. LTG Duration 01/11/23 Strength Impairment Rotator cuff strength Impairment Pt with IR/ER strength at 4-/5 . Short Term Goal (STG) Pt with IR/ER shoulder strength at 4/5. STG Duration 12/20/22 Project Scheduler Goal (LTG) Pt with IR/ER shoulder strength at 4+/5. LTG Duration 01/11/23 Independent exercise Impairment Weight-lifting Impairment Pt wants to begin weight training, though unsure if she should and what exercises are safe with shoulder impairment . Fci Goal (LTG) Pt independent with HEP. LTG Duration 01/11/23 Assessment Summary Assessment Najma Yao presents to PT to address ongoing shoulder pain. Pt demonstrates hypermobility at bilateral shoulders with reported end range pain on L UE in all directions. Pt demonstrates poor scapular dynamics, demonstrating scapular winging. Pt with crepitus and pain with mid trap testing. Pt fair control of scapular mechanics with wall slide, given in HEP. Pt very motivated to return to independent weight lifting program. Pt would benefit from continued PT to improve scapulohumeral dynamics to improve tolerance to UE functional tasks. Physical Therapy Plan Frequency and Duration Frequency of Treatment 1x/Week Duration of treatment (weeks) 6 Plan of Care Start Date 11/30/22 Plan of Care End Date 01/11/23 Therapeutic Interventions Therapeutic Interventions Balance Training,Joint Mobilizations,Manual Therapy, Neuromuscular Re-education, Patient/Caregiver Education, Self-Care/Home Management,Soft Tissue Mobilization,Taping, Therapeutic Activities, Therapeutic Exercises Modalities Cold Pack/Ice Massage,Electric Stimulation,Hot Packs, Ultrasound Next Visit Focus/Plan Next Note Type Treatment Note Next Visit Plan progress scapulohumeral mechanics, improve serratus strength, progress UE CKC exercises Plan of Care Dates Plan of Care Start Date 11/30/22 Plan of Care End Date 01/11/23 Electronically Signed by: Brianna Dunbar, PT 11/30/22 [id number] If you are in agreement with this Plan of Care, please return a signed and dated copy. I have reviewed this Plan of Care and certify that the skilled therapy services above are required to meet the patient?s needs. Physician Signature Date Printed Name and Credentials Clinical Instructor Signature Printed Name and Credentials
--- NOTE | 2022-11-30 12:19 | PT.OIE ---
Current Diagnoses Other chronic pain (11/30/22) Pain in left shoulder (11/30/22) Past Medical History (Last Updated 01/03/22 @ 09:15 by Katelyn Anderson DO) Abdominal pain Abnormal chest xray (~05/10/10) Abnormal Pap smear of cervix Back pain Basal cell carcinoma Cervical spine degeneration Chicken pox Colon polyps Dislocation of patella, left, closed Foot pain Headache Hearing loss Heavy menstrual period History of urinary incontinence Hyperlipidemia IgA deficiency Impingement of left ankle joint Internal hemorrhoids (~04/2020) Latent tuberculosis (~04/2010) Migraines Osteoarthritis Osteoporosis Ovarian cyst Painful menstrual periods Pancreatic cyst Squamous cell carcinoma Tuberculosis (~05/12/10) Past Surgical History (Last Reviewed 07/23/21 @ 12:03 by Shelley Marcum MD) Anesthesia History of arthroplasty (~2016) History of bladder surgery (~2019) History of knee surgery History of left knee replacement (~2006) History of lumbar laminectomy (~04/2020) History of sinus surgery History of surgery (~2014) S/P left rotator cuff repair (~2007) Visit Care Team Role Provider Type Katelyn Anderson DO Attending Provider Physician Family Provider Primary Care Provider Referring Provider Specialty: Medical Address: [address] [place] [address], [address], [place], [facility] Email: [email or web address] Physical Therapy Initial Evaluation PT-OP-A Visit Information Start: 11/30/22 12:18 Freq: Status: Active Protocol: Document 11/30/22 12:19 AM (Rec: 11/30/22 14:17 AM [id number]) Out-Patient Physical Therapy Visit Information Visit Information Visit Type Initial Evaluation Visit Start Time 12:21 Visit Stop Time 13:04 Total Visit Minutes 43 Visit Number 1 Number of PUBLIC HEALTH POLICY ANALYST Visits 0 Evaluation Information Evaluation Date 11/30/22 PT-OP-B Current Condition Start: 11/30/22 12:18 Freq: Status: Active Protocol: Document 11/30/22 12:19 AM (Rec: 11/30/22 14:17 AM [id number]) Current Condition History of Current Condition Onset Date 6 months ago Current Complaints L shoulder pain History of Current Condition Pt reports L shoulder pain. Pt had L rotator cuff repair 15 years ago. Pt reports that her pain initially started while sleeping. Her arm got stuck overhead and she had difficulty bringing it back down. Pt reports that she has very hypermobile joints. Pt would like to start lifting weights again and wants to make sure her shoulder is ready. Pt would like to be able to swim as well. Pt reports that she has pain down her arm at times. Prior Treatments and Tests x-ray-mild arthritis Future Testing and Treatments Planned none scheduled. Prior Functional Status Baseline Function- ADL's Independent Baseline Function- Mobility Independent Current Functional Impairments (Reported) Functional Limitations- ADL's Independent Functional Limitations- Recreation/ Pt unable to swim and lift Hobbies weights secondary to L Shoulder pain PT-OP-C Subjective Start: 11/30/22 12:18 Freq: Status: Active Protocol: Document 11/30/22 12:19 AM (Rec: 11/30/22 14:17 AM [id number]) Patient Questionnaires Quick Dash- Upper Extremity Quick Dash UE Score 27 Quick Dash UE Impairment 20 to 39% Impaired (Score 20- 39) OP-PT Pain Assessment Pain Assessment Grid Paper Pain Assessment Grid Completed No Location Anterior Shoulder Pain Location Details Anterior shoulder pain Intensity 1 Scale Used Numeric (0 - 10) Description Aching Description- Other 1/10 at rest, 6-7/10 Radiating Location to arm Pain Aggravating Factors Position,ADL's,Activity, Lifting Pain Alleviating Factors Medication Other Pain Alleviating Factors ibuprofen PRN, voltaren Patient Stated Pain Goal Be able to swim and lift weights PT-OP-J Posture/Palpation/Skin Start: 11/30/22 12:18 Freq: Status: Active Protocol: Document 11/30/22 12:19 AM (Rec: 11/30/22 14:17 AM [id number]) Posture Evaluation Position Sitting Scapula Posture (L) Rotated Down,(L) Winged,(R ) Winged Palpation Assessment Location L shoulder Palpation Location pain with palpation of infraspinatus and anterior deltoid, supras Palpation Findings Muscle Guarding,Tenderness PT-OP-K Range of Motion Start: 11/30/22 12:18 Freq: Status: Active Protocol: Document 11/30/22 12:19 AM (Rec: 11/30/22 14:17 AM [id number]) Shoulder Goniometric Range of Motion Shoulder Right Active Shoulder ROM WFL Yes Testing Position Sitting Flexion 180 Abduction 180 Internal Rotation Behind Back (text) T5 Comments ER APLY T7 Left Active Shoulder ROM WFL Yes Testing Position Sitting Flexion 165 Abduction 174 Internal Rotation Behind Back (text) T5 Comments End range flexion and abduction pain, ER aply T-5 PT-OP-L Special Tests Start: 11/30/22 12:18 Freq: Status: Active Protocol: Document 11/30/22 12:19 AM (Rec: 11/30/22 14:17 AM [id number]) Special Tests Shoulder Special Tests Apprehension Test Test Results negative Lift-Off Rotator Cuff Test Results negative Belly Press Test Results Positive Empty Can Test Results Negative Comments end range pain only Elevation Impingement Test Results negative Comments end range pain only PT-OP-M Strength Start: 11/30/22 12:18 Freq: Status: Active Protocol: Document 11/30/22 12:19 AM (Rec: 11/30/22 14:17 AM [id number]) Shoulder Strength Shoulder Manual Muscle Testing Right Flexion 4 Good Abduction (C5) 4 Good External Rotation 4 Good Internal Rotation 4 Good Left Flexion 4- Good- Abduction (C5) 4- Good- External Rotation 4- Good- Internal Rotation 4- Good- Comments Mid trap-3+/5, crepitus and pain, pain with IR PT-OP-Q Treatments Start: 11/30/22 12:18 Freq: Status: Active Protocol: Document 11/30/22 12:19 AM (Rec: 11/30/22 15:12 AM [id number]) Therapeutic Exercises Prone Exercises Shoulder extension Prone Exercise Name Shoulder extension Side left Reps/Minutes x10 Comments tactile cueing for scapular retraction Standing Exercises Quadruped Standing Exercise Name Shoulder tap Side bilateral Comments Pt able to demonstrate fair scapular control, worsened with modified plank Serratus wall slide Standing Exercise Name Serratus wall slide Side bilateral Equipment Used foam roll on wall Reps/Minutes x10 PT-OP-T Assessment and Plan Start: 11/30/22 12:18 Freq: Status: Active Protocol: Document 11/30/22 12:19 AM (Rec: 11/30/22 14:17 AM [id number]) Physical Therapy Assessment Rehab Potential Rehabilitation Potential Excellent Evaluation Complexity Number of Personal Factors/Comorbidities 0 Number of Body Systems Impaired 1-2 Clinical Presentation at Evaluation Stable Impairments Impairments Activity Tolerance, Coordination,Functional Activities,Functional Mobility ,Pain,Posture,Soft Tissue Mobility,Strength Goals Plank Impairment Pt unable to achieve plank position without scapular winging. Short Term Goal (STG) Pt able to hold plank position on knees for 30 seconds with good scapular control. STG Duration 12/20/22 Fpc Goal (LTG) Pt able to hold plank position on feet for 30 seconds with good scapular control. LTG Duration 01/11/23 Pain Impairment Pain rating Impairment Pt reports pain at 7/10 at the worst. Short Term Goal (STG) Pt with 4/10 L shoulder pain at the worst. STG Duration 12/20/22 Bit Sharpener Operator Goal (LTG) Pt with 2/10 L shoulder pain reported at worst. LTG Duration 01/11/23 Quick dash Impairment Shoulder disability Impairment Pt with 27% shoulder disability per Quick dash Fpc Goal (LTG) Pt with less than 15% shoulder disability per Quick dash. LTG Duration 01/11/23 Push-up Impairment Pt unable to do a push-up secondary to discomfort Short Term Goal (STG) Pt able to do 10 wall push-ups without scapular winging. STG Duration 12/20/22 Fpc Goal (LTG) Pt able to do modified push-up on knees without scapular winging. LTG Duration 01/11/23 Strength Impairment Rotator cuff strength Impairment Pt with IR/ER strength at 4-/5 . Short Term Goal (STG) Pt with IR/ER shoulder strength at 4/5. STG Duration 12/20/22 Fpc Goal (LTG) Pt with IR/ER shoulder strength at 4+/5. LTG Duration 01/11/23 Independent exercise Impairment Weight-lifting Impairment Pt wants to begin weight training, though unsure if she should and what exercises are safe with shoulder impairment . Fpc Goal (LTG) Pt independent with HEP. LTG Duration 01/11/23 Assessment Summary Assessment Najma Yao presents to PT to address ongoing shoulder pain. Pt demonstrates hypermobility at bilateral shoulders with reported end range pain on L UE in all directions. Pt demonstrates poor scapular dynamics, demonstrating scapular winging. Pt with crepitus and pain with mid trap testing. Pt fair control of scapular mechanics with wall slide, given in HEP. Pt very motivated to return to independent weight lifting program. Pt would benefit from continued PT to improve scapulohumeral dynamics to improve tolerance to UE functional tasks. Physical Therapy Plan Frequency and Duration Frequency of Treatment 1x/Week Duration of treatment (weeks) 6 Plan of Care Start Date 11/30/22 Plan of Care End Date 01/11/23 Therapeutic Interventions Therapeutic Interventions Balance Training,Joint Mobilizations,Manual Therapy, Neuromuscular Re-education, Patient/Caregiver Education, Self-Care/Home Management,Soft Tissue Mobilization,Taping, Therapeutic Activities, Therapeutic Exercises Modalities Cold Pack/Ice Massage,Electric Stimulation,Hot Packs, Ultrasound Next Visit Focus/Plan Next Note Type Treatment Note Next Visit Plan progress scapulohumeral mechanics, improve serratus strength, progress UE CKC exercises
--- NOTE | 2022-12-07 11:29 | PT.OTN ---
Current Diagnoses Other chronic pain (12/07/22) Pain in left shoulder (12/07/22) Physical Therapy Treatment Note PT-OP-A Visit Information Start: 11/30/22 12:18 Freq: Status: Active Protocol: Document 12/07/22 11:29 AM (Rec: 12/07/22 14:42 AM [id number]) Out-Patient Physical Therapy Visit Information Visit Information Visit Type Treatment Note Visit Start Time 11:30 Visit Stop Time 12:20 Total Visit Minutes 50 Visit Number 2 PT-OP-B Current Condition Start: 11/30/22 12:18 Freq: Status: Active Protocol: Document 12/07/22 11:29 AM (Rec: 12/07/22 14:42 AM [id number]) Current Condition History of Current Condition Onset Date 6 months ago Current Complaints L shoulder pain History of Current Condition Pt reports L shoulder pain. Pt had L rotator cuff repair 15 years ago. Pt reports that her pain initially started while sleeping. Her arm got stuck overhead and she had difficulty bringing it back down. Pt reports that she has very hypermobile joints. Pt would like to start lifting weights again and wants to make sure her shoulder is ready. Pt would like to be able to swim as well. Pt reports that she has pain down her arm at times. Prior Treatments and Tests x-ray-mild arthritis Future Testing and Treatments Planned none scheduled. PT-OP-C Subjective Start: 11/30/22 12:18 Freq: Status: Active Protocol: Document 12/07/22 11:29 AM (Rec: 12/07/22 14:42 AM [id number]) OP-PT Subjective Patient Comments Patient Comments Pt reports that she has a shoulder ache today. Pt reports that she has been trying to not sleep with arm over head, but sometimes ends up there. PT-OP-J Posture/Palpation/Skin Start: 11/30/22 12:18 Freq: Status: Active Protocol: Document 11/30/22 12:19 AM (Rec: 11/30/22 14:17 AM [id number]) Posture Evaluation Position Sitting Scapula Posture (L) Rotated Down,(L) Winged,(R ) Winged Palpation Assessment Location L shoulder Palpation Location pain with palpation of infraspinatus and anterior deltoid, supras Palpation Findings Muscle Guarding,Tenderness PT-OP-K Range of Motion Start: 11/30/22 12:18 Freq: Status: Active Protocol: Document 11/30/22 12:19 AM (Rec: 11/30/22 14:17 AM [id number]) Shoulder Goniometric Range of Motion Shoulder Right Active Shoulder ROM WFL Yes Testing Position Sitting Flexion 180 Abduction 180 Internal Rotation Behind Back (text) T5 Comments ER APLY T7 Left Active Shoulder ROM WFL Yes Testing Position Sitting Flexion 165 Abduction 174 Internal Rotation Behind Back (text) T5 Comments End range flexion and abduction pain, ER aply T-5 PT-OP-L Special Tests Start: 11/30/22 12:18 Freq: Status: Active Protocol: Document 11/30/22 12:19 AM (Rec: 11/30/22 14:17 AM [id number]) Special Tests Shoulder Special Tests Apprehension Test Test Results negative Lift-Off Rotator Cuff Test Results negative Belly Press Test Results Positive Empty Can Test Results Negative Comments end range pain only Elevation Impingement Test Results negative Comments end range pain only PT-OP-M Strength Start: 11/30/22 12:18 Freq: Status: Active Protocol: Document 11/30/22 12:19 AM (Rec: 11/30/22 14:17 AM [id number]) Shoulder Strength Shoulder Manual Muscle Testing Right Flexion 4 Good Abduction (C5) 4 Good External Rotation 4 Good Internal Rotation 4 Good Left Flexion 4- Good- Abduction (C5) 4- Good- External Rotation 4- Good- Internal Rotation 4- Good- Comments Mid trap-3+/5, crepitus and pain, pain with IR PT-OP-Q Treatments Start: 11/30/22 12:18 Freq: Status: Active Protocol: Document 12/07/22 11:29 AM (Rec: 12/07/22 14:42 AM [id number]) Cardio Equipment Upper Body Ergometer (UBE) Duration (Minutes) 5 Seat Position 11 Therapeutic Exercises Prone Exercises Shoulder extension Prone Exercise Name Shoulder extension Side left Reps/Minutes 2x10, second set with 1# weight Comments tactile cueing for scapular retraction Sidelying Exercises Sidelying shoulder ER Sidelying Exercise Name Sidelying shoulder ER Side left Resistance 0-1# Equipment Used towel roll Standing Exercises Bilateral shoulder ext Standing Exercise Name Bilateral shoulder Ext Side bilateral Resistance Green TB Reps/Minutes x10 Quadruped Standing Exercise Name Shoulder tap Side bilateral Comments Pt able to demonstrate good scapular control in quad, trans to mod plank Serratus wall slide Standing Exercise Name Serratus wall slide Side bilateral Resistance Webb TB at wall Reps/Minutes x10 Manual Therapy Treatment Soft Tissue Mobilization Shoulder Body Location Med deltoid in supine, periscapular muscles in R sidelying Mobilization Type Instrument Assisted,Trigger Point Release Comments Trigger point at periscapular muscles, IASTM at deltoid with scraping tool. Joint Mobilizations Scapular mobilization Joint Scapular mobilization Direction All med/lat, sup/inf PT-OP-T Assessment and Plan Start: 11/30/22 12:18 Freq: Status: Active Protocol: Document 12/07/22 11:29 AM (Rec: 12/07/22 14:42 AM [id number]) Physical Therapy Assessment Impairments Impairments Activity Tolerance, Coordination,Functional Activities,Functional Mobility ,Pain,Posture,Soft Tissue Mobility,Strength Goals Plank Impairment Pt unable to achieve plank position without scapular winging. Short Term Goal (STG) Pt able to hold plank position on knees for 30 seconds with good scapular control. STG Duration 12/20/22 Shelter Goal (LTG) Pt able to hold plank position on feet for 30 seconds with good scapular control. LTG Duration 01/11/23 Pain Impairment Pain rating Impairment Pt reports pain at 7/10 at the worst. Short Term Goal (STG) Pt with 4/10 L shoulder pain at the worst. STG Duration 12/20/22 Can Sorter Goal (LTG) Pt with 2/10 L shoulder pain reported at worst. LTG Duration 01/11/23 Quick dash Impairment Shoulder disability Impairment Pt with 27% shoulder disability per Quick dash Shelter Goal (LTG) Pt with less than 15% shoulder disability per Quick dash. LTG Duration 01/11/23 Push-up Impairment Pt unable to do a push-up secondary to discomfort Short Term Goal (STG) Pt able to do 10 wall push-ups without scapular winging. STG Duration 12/20/22 Shelter Goal (LTG) Pt able to do modified push-up on knees without scapular winging. LTG Duration 01/11/23 Strength Impairment Rotator cuff strength Impairment Pt with IR/ER strength at 4-/5 . Short Term Goal (STG) Pt with IR/ER shoulder strength at 4/5. STG Duration 12/20/22 Shelter Goal (LTG) Pt with IR/ER shoulder strength at 4+/5. LTG Duration 01/11/23 Independent exercise Impairment Weight-lifting Impairment Pt wants to begin weight training, though unsure if she should and what exercises are safe with shoulder impairment . Can Sorter Goal (LTG) Pt independent with HEP. LTG Duration 01/11/23 Assessment Summary Assessment Pt demonstrates improved scapular control in quadruped position today. Pt able to progress to modifed plank without scapular winging. Pt with tenderness along med deltoid and infraspinatus with STM. Pt with referral symptoms down to hand with trigger point release at infraspinatus. KT skin test strip applied to L upper arm. Assess skin response and trial KT if indicated. Pt would benefit from continued PT to progress shoulder strength and scapulohumeral mechanics to decrease pain. Physical Therapy Plan Frequency and Duration Frequency of Treatment 1x/Week Duration of treatment (weeks) 6 Plan of Care Start Date 11/30/22 Plan of Care End Date 01/11/23 Therapeutic Interventions Therapeutic Interventions Balance Training,Joint Mobilizations,Manual Therapy, Neuromuscular Re-education, Patient/Caregiver Education, Self-Care/Home Management,Soft Tissue Mobilization,Taping, Therapeutic Activities, Therapeutic Exercises Modalities Cold Pack/Ice Massage,Electric Stimulation,Hot Packs, Ultrasound Next Visit Focus/Plan Next Note Type Treatment Note Next Visit Plan progress scapulohumeral mechanics, improve serratus strength, progress UE CKC exercises, assess kinesiotape response and tape if indicated
--- NOTE | 2022-12-11 13:30 | PT.OTN ---
Current Diagnoses Other chronic pain (12/11/22) Pain in left shoulder (12/11/22) Physical Therapy Treatment Note PT-OP-A Visit Information Start: 11/30/22 12:18 Freq: Status: Active Protocol: Document 12/11/22 10:19 NBM (Rec: 12/11/22 11:33 [facility] [id number]) Out-Patient Physical Therapy Visit Information Visit Information Visit Type Treatment Note Visit Start Time 10:30 Visit Stop Time 11:20 Total Visit Minutes 50 Visit Number 3 Number of STEAM BOX OPERATOR Visits 1 PT-OP-B Current Condition Start: 11/30/22 12:18 Freq: Status: Active Protocol: Document 12/07/22 11:29 AM (Rec: 12/07/22 14:42 AM [id number]) Current Condition History of Current Condition Onset Date 6 months ago Current Complaints L shoulder pain History of Current Condition Pt reports L shoulder pain. Pt had L rotator cuff repair 15 years ago. Pt reports that her pain initially started while sleeping. Her arm got stuck overhead and she had difficulty bringing it back down. Pt reports that she has very hypermobile joints. Pt would like to start lifting weights again and wants to make sure her shoulder is ready. Pt would like to be able to swim as well. Pt reports that she has pain down her arm at times. Prior Treatments and Tests x-ray-mild arthritis Future Testing and Treatments Planned none scheduled. PT-OP-C Subjective Start: 11/30/22 12:18 Freq: Status: Active Protocol: Document 12/11/22 10:19 NBM (Rec: 12/11/22 11:33 [facility] [id number]) OP-PT Subjective Patient Comments Patient Comments Najma reports she felt good with the manipulation to the L shoulder last visit. She states no reaction to the Kinesiotape although she has skin sensitivities. She got her COVID shot and wasn't able to do ex's two days. PT-OP-J Posture/Palpation/Skin Start: 11/30/22 12:18 Freq: Status: Active Protocol: Document 11/30/22 12:19 AM (Rec: 11/30/22 14:17 AM [id number]) Posture Evaluation Position Sitting Scapula Posture (L) Rotated Down,(L) Winged,(R ) Winged Palpation Assessment Location L shoulder Palpation Location pain with palpation of infraspinatus and anterior deltoid, supras Palpation Findings Muscle Guarding,Tenderness PT-OP-K Range of Motion Start: 11/30/22 12:18 Freq: Status: Active Protocol: Document 11/30/22 12:19 AM (Rec: 11/30/22 14:17 AM [id number]) Shoulder Goniometric Range of Motion Shoulder Right Active Shoulder ROM WFL Yes Testing Position Sitting Flexion 180 Abduction 180 Internal Rotation Behind Back (text) T5 Comments ER APLY T7 Left Active Shoulder ROM WFL Yes Testing Position Sitting Flexion 165 Abduction 174 Internal Rotation Behind Back (text) T5 Comments End range flexion and abduction pain, ER aply T-5 PT-OP-L Special Tests Start: 11/30/22 12:18 Freq: Status: Active Protocol: Document 11/30/22 12:19 AM (Rec: 11/30/22 14:17 AM [id number]) Special Tests Shoulder Special Tests Apprehension Test Test Results negative Lift-Off Rotator Cuff Test Results negative Belly Press Test Results Positive Empty Can Test Results Negative Comments end range pain only Elevation Impingement Test Results negative Comments end range pain only PT-OP-M Strength Start: 11/30/22 12:18 Freq: Status: Active Protocol: Document 11/30/22 12:19 AM (Rec: 11/30/22 14:17 AM [id number]) Shoulder Strength Shoulder Manual Muscle Testing Right Flexion 4 Good Abduction (C5) 4 Good External Rotation 4 Good Internal Rotation 4 Good Left Flexion 4- Good- Abduction (C5) 4- Good- External Rotation 4- Good- Internal Rotation 4- Good- Comments Mid trap-3+/5, crepitus and pain, pain with IR PT-OP-Q Treatments Start: 11/30/22 12:18 Freq: Status: Active Protocol: Document 12/11/22 10:19 NBM (Rec: 12/11/22 11:33 NBM [id number]) Therapeutic Exercises Prone Exercises Shoulder extension Prone Exercise Name Shoulder extension Side left Resistance green Reps/Minutes 2x10, second set with 1# weight Comments tactile cueing for scapular retraction Sidelying Exercises Sidelying shoulder ER Sidelying Exercise Name Sidelying shoulder ER Side bilateral Resistance 1# Equipment Used towel roll Reps/Minutes x10 ea Standing Exercises resisted bandwalking Standing Exercise Name band around wrists Side bilateral Resistance Lvl 1 Tb peach Equipment Used handrail Reps/Minutes R x10, L discontinued d/t LUE pain shoulder rows Standing Exercise Name w/ hold - added to HEP Side bilateral Resistance Lvl 3 tb green Reps/Minutes x12 Wall pushups Standing Exercise Name Push up plus: W and sheila - HEP Side bilateral Equipment Used wall Reps/Minutes x10ea Comments positive feedback response Bilateral shoulder ext Standing Exercise Name Bilateral shoulder Ext Side bilateral Resistance Green TB Reps/Minutes x10 Quadruped Standing Exercise Name Shoulder tap Side bilateral Reps/Minutes x10 ea Comments quad to mod plank; cues for rounded mitchel, slower pacing Serratus wall slide Standing Exercise Name Serratus wall slide Side bilateral Resistance Davis TB at wall Reps/Minutes x10 Comments cues for posture, scap set, chin tuck, slower pacing Manual Therapy Treatment Soft Tissue Mobilization Shoulder Body Location Mid deltoid in supine, periscapular muscles in R sidelying Mobilization Type Cross-Friction,Instrument Assisted,Trigger Point Release Intensity/Depth Moderate Comments Trigger point at periscapular muscles, cross-friction and IASTM and at deltoid with scraping tool. Joint Mobilizations GH Joint glide, distraction Direction posterior Grade II Body Position Supine Comments positive feedback response; distraction in scapular plane Taping Kinesiotape Type of Tape Kinesio Tape Skin Inspection intact Comments 1. X anchored from superior angle of scapula to inferior angle of opp scapula. Applied w/ pt performing scapular retraction. 2. Y strip anchored along middle deltoid, along ant and posterior shoulder w/ pt retracting. Pt instructed in removal at 5 days or prior if itching/ redness/rash and provided adhesive remover. Self-Care/Home Management Treatment Education Patient Education Body Mechanics,Home Exercise Program,Posture Other Education HEP education with scapular setting and upright posture with ex's. Added to HEP: Resisted mitchel rows, wall serratus pushup plus (W and sheila hand position)- HO given. PT-OP-T Assessment and Plan Start: 11/30/22 12:18 Freq: Status: Active Protocol: Document 12/11/22 10:19 [facility] (Rec: 12/11/22 11:33 [facility] [id number]) Physical Therapy Assessment Goals Plank Impairment Pt unable to achieve plank position without scapular winging. Short Term Goal (STG) Pt able to hold plank position on knees for 30 seconds with good scapular control. STG Duration 12/20/22 Management Services Technician Goal (LTG) Pt able to hold plank position on feet for 30 seconds with good scapular control. LTG Duration 01/11/23 Pain Impairment Pain rating Impairment Pt reports pain at 7/10 at the worst. Short Term Goal (STG) Pt with 4/10 L shoulder pain at the worst. STG Duration 12/20/22 Retirement Goal (LTG) Pt with 2/10 L shoulder pain reported at worst. LTG Duration 01/11/23 Quick dash Impairment Shoulder disability Impairment Pt with 27% shoulder disability per Quick dash Management Services Technician Goal (LTG) Pt with less than 15% shoulder disability per Quick dash. LTG Duration 01/11/23 Push-up Impairment Pt unable to do a push-up secondary to discomfort Short Term Goal (STG) Pt able to do 10 wall push-ups without scapular winging. STG Duration 12/20/22 Retirement Goal (LTG) Pt able to do modified push-up on knees without scapular winging. LTG Duration 01/11/23 Strength Impairment Rotator cuff strength Impairment Pt with IR/ER strength at 4-/5 . Short Term Goal (STG) Pt with IR/ER shoulder strength at 4/5. STG Duration 12/20/22 Retirement Goal (LTG) Pt with IR/ER shoulder strength at 4+/5. LTG Duration 01/11/23 Independent exercise Impairment Weight-lifting Impairment Pt wants to begin weight training, though unsure if she should and what exercises are safe with shoulder impairment . Retirement Goal (LTG) Pt independent with HEP. LTG Duration 01/11/23 Assessment Summary Assessment Treatment focus on HEP education with scapular setting and upright posture with ex's, and manual therapy to L shoulder. Najma requires cues with quadruped ex for slower pacing and rounded shoulders. Pt reports pain improves after manual therapy to L shoulder. KT tape applied between scapular for postural focus and along middle deltoid to facilitate shoulder retraction. Added to HEP: Resisted mitchel rows, wall serratus push plus (W and sheila hand position)- HO given. Physical Therapy Plan Frequency and Duration Frequency of Treatment 1x/Week Duration of treatment (weeks) 6 Plan of Care Start Date 11/30/22 Plan of Care End Date 01/11/23 Therapeutic Interventions Therapeutic Interventions Balance Training,Joint Mobilizations,Manual Therapy, Neuromuscular Re-education, Patient/Caregiver Education, Self-Care/Home Management,Soft Tissue Mobilization,Taping, Therapeutic Activities, Therapeutic Exercises Modalities Cold Pack/Ice Massage,Electric Stimulation,Hot Packs, Ultrasound Next Visit Focus/Plan Next Note Type Treatment Note Next Visit Plan Assess KT tape. progress scapulohumeral mechanics, improve serratus strength, progress UE CKC exercises, assess kinesiotape response and tape if indicated
--- NOTE | 2022-12-19 16:03 | PT.OTN ---
Current Diagnoses Other chronic pain (12/19/22) Pain in left shoulder (12/19/22) Physical Therapy Treatment Note PT-OP-A Visit Information Start: 11/30/22 12:18 Freq: Status: Active Protocol: Document 12/19/22 16:03 AM (Rec: 12/19/22 17:52 AM [id number]) Out-Patient Physical Therapy Visit Information Visit Information Visit Type Treatment Note Visit Start Time 16:03 Visit Stop Time 16:48 Total Visit Minutes 45 Visit Number 4 Number of COIN MACHINE COLLECTOR SUPERVISOR Visits 1 Precautions Precautions Pt with skin reaction to KT. PT-OP-B Current Condition Start: 11/30/22 12:18 Freq: Status: Active Protocol: Document 12/07/22 11:29 AM (Rec: 12/07/22 14:42 AM [id number]) Current Condition History of Current Condition Onset Date 6 months ago Current Complaints L shoulder pain History of Current Condition Pt reports L shoulder pain. Pt had L rotator cuff repair 15 years ago. Pt reports that her pain initially started while sleeping. Her arm got stuck overhead and she had difficulty bringing it back down. Pt reports that she has very hypermobile joints. Pt would like to start lifting weights again and wants to make sure her shoulder is ready. Pt would like to be able to swim as well. Pt reports that she has pain down her arm at times. Prior Treatments and Tests x-ray-mild arthritis Future Testing and Treatments Planned none scheduled. PT-OP-C Subjective Start: 11/30/22 12:18 Freq: Status: Active Protocol: Document 12/19/22 16:03 AM (Rec: 12/19/22 17:52 AM [id number]) OP-PT Subjective Patient Comments Patient Comments Pt denies shoulder discomfort today, though has not done a lot with the shoulder today. Pt reports that she had a skin reaction to KT after last session, therefore took it off . PT-OP-J Posture/Palpation/Skin Start: 11/30/22 12:18 Freq: Status: Active Protocol: Document 11/30/22 12:19 AM (Rec: 11/30/22 14:17 AM [id number]) Posture Evaluation Position Sitting Scapula Posture (L) Rotated Down,(L) Winged,(R ) Winged Palpation Assessment Location L shoulder Palpation Location pain with palpation of infraspinatus and anterior deltoid, supras Palpation Findings Muscle Guarding,Tenderness PT-OP-K Range of Motion Start: 11/30/22 12:18 Freq: Status: Active Protocol: Document 11/30/22 12:19 AM (Rec: 11/30/22 14:17 AM [id number]) Shoulder Goniometric Range of Motion Shoulder Right Active Shoulder ROM WFL Yes Testing Position Sitting Flexion 180 Abduction 180 Internal Rotation Behind Back (text) T5 Comments ER APLY T7 Left Active Shoulder ROM WFL Yes Testing Position Sitting Flexion 165 Abduction 174 Internal Rotation Behind Back (text) T5 Comments End range flexion and abduction pain, ER aply T-5 PT-OP-L Special Tests Start: 11/30/22 12:18 Freq: Status: Active Protocol: Document 11/30/22 12:19 AM (Rec: 11/30/22 14:17 AM [id number]) Special Tests Shoulder Special Tests Apprehension Test Test Results negative Lift-Off Rotator Cuff Test Results negative Belly Press Test Results Positive Empty Can Test Results Negative Comments end range pain only Elevation Impingement Test Results negative Comments end range pain only PT-OP-M Strength Start: 11/30/22 12:18 Freq: Status: Active Protocol: Document 11/30/22 12:19 AM (Rec: 11/30/22 14:17 AM [id number]) Shoulder Strength Shoulder Manual Muscle Testing Right Flexion 4 Good Abduction (C5) 4 Good External Rotation 4 Good Internal Rotation 4 Good Left Flexion 4- Good- Abduction (C5) 4- Good- External Rotation 4- Good- Internal Rotation 4- Good- Comments Mid trap-3+/5, crepitus and pain, pain with IR PT-OP-Q Treatments Start: 11/30/22 12:18 Freq: Status: Active Protocol: Document 12/19/22 16:03 AM (Rec: 12/19/22 17:52 AM [id number]) Cardio Equipment Upper Body Ergometer (UBE) Duration (Minutes) 5 Seat Position 9 Therapeutic Exercises Standing Exercises Shoulder press Side bilateral Resistance 1# Reps/Minutes x10 Shoulder scaption Side bilateral Resistance 1# Reps/Minutes x10 Biceps curls Resistance 1# Reps/Minutes x10 Wall pushups Standing Exercise Name W and sheila Side bilateral Equipment Used wall Reps/Minutes x10ea Comments positive feedback response Manual Therapy Treatment Soft Tissue Mobilization Shoulder Body Location Med deltoid in supine, periscapular muscles in R sidelying Mobilization Type Cross-Friction,Instrument Assisted,Trigger Point Release Intensity/Depth Moderate Comments Trigger point at periscapular muscles, cross-friction and IASTM and at deltoid with scraping tool. Joint Mobilizations Scapular mobilization Joint Scapular mobilization Direction All med/lat, sup/inf PT-OP-T Assessment and Plan Start: 11/30/22 12:18 Freq: Status: Active Protocol: Document 12/19/22 16:03 AM (Rec: 12/19/22 17:52 AM [id number]) Physical Therapy Assessment Goals Plank Impairment Pt unable to achieve plank position without scapular winging. Short Term Goal (STG) Pt able to hold plank position on knees for 30 seconds with good scapular control. STG Duration 12/20/22 Liquor Maker Goal (LTG) Pt able to hold plank position on feet for 30 seconds with good scapular control. LTG Duration 01/11/23 Pain Impairment Pain rating Impairment Pt reports pain at 7/10 at the worst. Short Term Goal (STG) Pt with 4/10 L shoulder pain at the worst. STG Duration 12/20/22 Liquor Maker Goal (LTG) Pt with 2/10 L shoulder pain reported at worst. LTG Duration 01/11/23 Quick dash Impairment Shoulder disability Impairment Pt with 27% shoulder disability per Quick dash Liquor Maker Goal (LTG) Pt with less than 15% shoulder disability per Quick dash. LTG Duration 01/11/23 Push-up Impairment Pt unable to do a push-up secondary to discomfort Short Term Goal (STG) Pt able to do 10 wall push-ups without scapular winging. STG Duration 12/20/22 Liquor Maker Goal (LTG) Pt able to do modified push-up on knees without scapular winging. LTG Duration 01/11/23 Strength Impairment Rotator cuff strength Impairment Pt with IR/ER strength at 4-/5 . Short Term Goal (STG) Pt with IR/ER shoulder strength at 4/5. STG Duration 12/20/22 Assisted Goal (LTG) Pt with IR/ER shoulder strength at 4+/5. LTG Duration 01/11/23 Independent exercise Impairment Weight-lifting Impairment Pt wants to begin weight training, though unsure if she should and what exercises are safe with shoulder impairment . Assisted Goal (LTG) Pt independent with HEP. LTG Duration 01/11/23 Assessment Summary Assessment Pt demonstrated improved scapular control with biceps curls with tactile and visual cueing. Pt demonstrates improving scapular control with CKC activities. Pt continues to demonstrate some tenderness at anterior and medial deltoid with STM. Pt will return to PT next week to continue to progress shoulder strengthening program, while monitoring scapular control. Physical Therapy Plan Frequency and Duration Frequency of Treatment 1x/Week Duration of treatment (weeks) 6 Plan of Care Start Date 11/30/22 Plan of Care End Date 01/11/23 Therapeutic Interventions Therapeutic Interventions Balance Training,Joint Mobilizations,Manual Therapy, Neuromuscular Re-education, Patient/Caregiver Education, Self-Care/Home Management,Soft Tissue Mobilization,Taping, Therapeutic Activities, Therapeutic Exercises Modalities Cold Pack/Ice Massage,Electric Stimulation,Hot Packs, Ultrasound Next Visit Focus/Plan Next Note Type Treatment Note Next Visit Plan progress scapulohumeral mechanics, improve serratus strength, progress UE CKC exercises, assess kinesiotape response and tape if indicated
--- NOTE | 2023-01-03 09:02 | PT.OTN ---
Current Diagnoses Other chronic pain (01/03/23) Pain in left shoulder (01/03/23) Physical Therapy Treatment Note PT-OP-A Visit Information Start: 11/30/22 12:18 Freq: Status: Active Protocol: Document 01/03/23 09:02 AM (Rec: 01/03/23 13:32 AM [id number]) Out-Patient Physical Therapy Visit Information Visit Information Visit Type Treatment Note Visit Start Time 09:03 Visit Stop Time 09:48 Total Visit Minutes 45 Visit Number 5 Number of CATEGORY DEVELOPMENT MANAGER Visits 1 Precautions Precautions Skin allergy to KT PT-OP-B Current Condition Start: 11/30/22 12:18 Freq: Status: Active Protocol: Document 12/07/22 11:29 AM (Rec: 12/07/22 14:42 AM [id number]) Current Condition History of Current Condition Onset Date 6 months ago Current Complaints L shoulder pain History of Current Condition Pt reports L shoulder pain. Pt had L rotator cuff repair 15 years ago. Pt reports that her pain initially started while sleeping. Her arm got stuck overhead and she had difficulty bringing it back down. Pt reports that she has very hypermobile joints. Pt would like to start lifting weights again and wants to make sure her shoulder is ready. Pt would like to be able to swim as well. Pt reports that she has pain down her arm at times. Prior Treatments and Tests x-ray-mild arthritis Future Testing and Treatments Planned none scheduled. PT-OP-C Subjective Start: 11/30/22 12:18 Freq: Status: Active Protocol: Document 01/03/23 09:02 AM (Rec: 01/03/23 13:32 AM [id number]) OP-PT Subjective Patient Comments Patient Comments Pt reports mild discomfort. Pt reports that her pain has not been waking her up at night. Pt has been taking 1 ibu vs 2. PT-OP-J Posture/Palpation/Skin Start: 11/30/22 12:18 Freq: Status: Active Protocol: Document 11/30/22 12:19 AM (Rec: 11/30/22 14:17 AM [id number]) Posture Evaluation Position Sitting Scapula Posture (L) Rotated Down,(L) Winged,(R ) Winged Palpation Assessment Location L shoulder Palpation Location pain with palpation of infraspinatus and anterior deltoid, supras Palpation Findings Muscle Guarding,Tenderness PT-OP-K Range of Motion Start: 11/30/22 12:18 Freq: Status: Active Protocol: Document 11/30/22 12:19 AM (Rec: 11/30/22 14:17 AM [id number]) Shoulder Goniometric Range of Motion Shoulder Right Active Shoulder ROM WFL Yes Testing Position Sitting Flexion 180 Abduction 180 Internal Rotation Behind Back (text) T5 Comments ER APLY T7 Left Active Shoulder ROM WFL Yes Testing Position Sitting Flexion 165 Abduction 174 Internal Rotation Behind Back (text) T5 Comments End range flexion and abduction pain, ER aply T-5 PT-OP-L Special Tests Start: 11/30/22 12:18 Freq: Status: Active Protocol: Document 11/30/22 12:19 AM (Rec: 11/30/22 14:17 AM [id number]) Special Tests Shoulder Special Tests Apprehension Test Test Results negative Lift-Off Rotator Cuff Test Results negative Belly Press Test Results Positive Empty Can Test Results Negative Comments end range pain only Elevation Impingement Test Results negative Comments end range pain only PT-OP-M Strength Start: 11/30/22 12:18 Freq: Status: Active Protocol: Document 11/30/22 12:19 AM (Rec: 11/30/22 14:17 AM [id number]) Shoulder Strength Shoulder Manual Muscle Testing Right Flexion 4 Good Abduction (C5) 4 Good External Rotation 4 Good Internal Rotation 4 Good Left Flexion 4- Good- Abduction (C5) 4- Good- External Rotation 4- Good- Internal Rotation 4- Good- Comments Mid trap-3+/5, crepitus and pain, pain with IR PT-OP-Q Treatments Start: 11/30/22 12:18 Freq: Status: Active Protocol: Document 01/03/23 09:02 AM (Rec: 01/03/23 13:32 AM [id number]) Cardio Equipment Upper Body Ergometer (UBE) Duration (Minutes) 5 Seat Position 9 Therapeutic Exercises Prone Exercises Shoulder extension Prone Exercise Name Shoulder extension Side bilateral Resistance on ball Reps/Minutes 2x10 Comments tactile cueing for LT recruitment, cues for cervical posture Sidelying Exercises Sidelying shoulder ER Sidelying Exercise Name Sidelying shoulder ER Side bilateral Resistance 2# Equipment Used towel roll Reps/Minutes x10 ea Standing Exercises Biceps curls Reps/Minutes x10 Comments cues for LT recruitment, decreased UT Wall pushups Standing Exercise Name W Side bilateral Equipment Used wall Reps/Minutes x10 Comments positive feedback response Manual Therapy Treatment Soft Tissue Mobilization Shoulder Body Location Med deltoid in supine, periscapular muscles in R sidelying Mobilization Type Cross-Friction,Instrument Assisted,Trigger Point Release Intensity/Depth Moderate Comments Trigger point at periscapular muscles, cross-friction and IASTM and at deltoid with scraping tool. Joint Mobilizations GH Joint glide, distraction Direction posterior Grade II Body Position Supine Comments distraction in scapular plane PT-OP-T Assessment and Plan Start: 11/30/22 12:18 Freq: Status: Active Protocol: Document 01/03/23 09:02 AM (Rec: 01/03/23 13:32 AM [id number]) Physical Therapy Assessment Goals Plank Impairment Pt unable to achieve plank position without scapular winging. Short Term Goal (STG) Pt able to hold plank position on knees for 30 seconds with good scapular control. STG Duration 12/20/22 Nursing Home Goal (LTG) Pt able to hold plank position on feet for 30 seconds with good scapular control. LTG Duration 01/11/23 Pain Impairment Pain rating Impairment Pt reports pain at 7/10 at the worst. Short Term Goal (STG) Pt with 4/10 L shoulder pain at the worst. 01/03/23: Pt reports pain has been at 3/10 at worst. STG Duration 12/20/22 Hand Laminator Goal (LTG) Pt with 2/10 L shoulder pain reported at worst. LTG Duration 01/11/23 Quick dash Impairment Shoulder disability Impairment Pt with 27% shoulder disability per Quick dash Nursing Home Goal (LTG) Pt with less than 15% shoulder disability per Quick dash. LTG Duration 01/11/23 Push-up Impairment Pt unable to do a push-up secondary to discomfort Short Term Goal (STG) Pt able to do 10 wall push-ups without scapular winging. 01/03/23: Goal met, elbows into side STG Duration 12/20/22 Hand Laminator Goal (LTG) Pt able to do modified push-up on knees without scapular winging. LTG Duration 01/11/23 Strength Impairment Rotator cuff strength Impairment Pt with IR/ER strength at 4-/5 . Short Term Goal (STG) Pt with IR/ER shoulder strength at 4/5. 01/03/23. Pt demonstrates scapular winging with IR/eR STG Duration 12/20/22 Hand Laminator Goal (LTG) Pt with IR/ER shoulder strength at 4+/5. LTG Duration 01/11/23 Independent exercise Impairment Weight-lifting Impairment Pt wants to begin weight training, though unsure if she should and what exercises are safe with shoulder impairment . Nursing Home Goal (LTG) Pt independent with HEP. LTG Duration 01/11/23 Assessment Summary Assessment Pt required tactile cueing for LT recruitment vs UT involvement setting scapula for UE exercises. Pt with tenderness along ant and med deltoid with STM. Pt demonstrates continued winging with resisted IR/ER, despite cueing. Pt would benefit from continue PT to progress scapular strength and improve scapulohumeral dynamics. Physical Therapy Plan Frequency and Duration Frequency of Treatment 1x/Week Duration of treatment (weeks) 6 Plan of Care Start Date 11/30/22 Plan of Care End Date 01/11/23 Therapeutic Interventions Therapeutic Interventions Balance Training,Joint Mobilizations,Manual Therapy, Neuromuscular Re-education, Patient/Caregiver Education, Self-Care/Home Management,Soft Tissue Mobilization,Taping, Therapeutic Activities, Therapeutic Exercises Modalities Cold Pack/Ice Massage,Electric Stimulation,Hot Packs, Ultrasound Next Visit Focus/Plan Next Note Type Treatment Note Next Visit Plan progress scapulohumeral mechanics, improve serratus strength, progress UE CKC exercises, assess kinesiotape response and tape if indicated
--- NOTE | 2023-01-10 13:31 | PT.OTN ---
Current Diagnoses Other chronic pain (01/10/23) Pain in left shoulder (01/10/23) Physical Therapy Treatment Note PT-OP-A Visit Information Start: 11/30/22 12:18 Freq: Status: Active Protocol: Document 01/10/23 13:31 AM (Rec: 01/10/23 14:17 AM [id number]) Out-Patient Physical Therapy Visit Information Visit Information Visit Type Discharge Summary Visit Start Time 13:32 Visit Stop Time 14:17 Total Visit Minutes 45 Visit Number 6 PT-OP-B Current Condition Start: 11/30/22 12:18 Freq: Status: Active Protocol: Document 12/07/22 11:29 AM (Rec: 12/07/22 14:42 AM [id number]) Current Condition History of Current Condition Onset Date 6 months ago Current Complaints L shoulder pain History of Current Condition Pt reports L shoulder pain. Pt had L rotator cuff repair 15 years ago. Pt reports that her pain initially started while sleeping. Her arm got stuck overhead and she had difficulty bringing it back down. Pt reports that she has very hypermobile joints. Pt would like to start lifting weights again and wants to make sure her shoulder is ready. Pt would like to be able to swim as well. Pt reports that she has pain down her arm at times. Prior Treatments and Tests x-ray-mild arthritis Future Testing and Treatments Planned none scheduled. PT-OP-C Subjective Start: 11/30/22 12:18 Freq: Status: Active Protocol: Document 01/10/23 13:31 AM (Rec: 01/10/23 14:17 AM [id number]) OP-PT Subjective Patient Comments Patient Comments Pt reports that her shoulder tends to feel better at rest. Pt reports that her night time pain has decreased. Pt reports that she is planning to start doing strength training with a clinical provider trainer. Patient Questionnaires Quick Dash- Upper Extremity Quick Dash UE Score 18 Quick Dash UE Impairment 1 to 19% Impaired (Score 1-19) PT-OP-J Posture/Palpation/Skin Start: 11/30/22 12:18 Freq: Status: Active Protocol: Document 11/30/22 12:19 AM (Rec: 11/30/22 14:17 AM [id number]) Posture Evaluation Position Sitting Scapula Posture (L) Rotated Down,(L) Winged,(R ) Winged Palpation Assessment Location L shoulder Palpation Location pain with palpation of infraspinatus and anterior deltoid, supras Palpation Findings Muscle Guarding,Tenderness PT-OP-K Range of Motion Start: 11/30/22 12:18 Freq: Status: Active Protocol: Document 11/30/22 12:19 AM (Rec: 11/30/22 14:17 AM [id number]) Shoulder Goniometric Range of Motion Shoulder Right Active Shoulder ROM WFL Yes Testing Position Sitting Flexion 180 Abduction 180 Internal Rotation Behind Back (text) T5 Comments ER APLY T7 Left Active Shoulder ROM WFL Yes Testing Position Sitting Flexion 165 Abduction 174 Internal Rotation Behind Back (text) T5 Comments End range flexion and abduction pain, ER aply T-5 PT-OP-L Special Tests Start: 11/30/22 12:18 Freq: Status: Active Protocol: Document 11/30/22 12:19 AM (Rec: 11/30/22 14:17 AM [id number]) Special Tests Shoulder Special Tests Apprehension Test Test Results negative Lift-Off Rotator Cuff Test Results negative Belly Press Test Results Positive Empty Can Test Results Negative Comments end range pain only Elevation Impingement Test Results negative Comments end range pain only PT-OP-M Strength Start: 11/30/22 12:18 Freq: Status: Active Protocol: Document 11/30/22 12:19 AM (Rec: 11/30/22 14:17 AM [id number]) Shoulder Strength Shoulder Manual Muscle Testing Right Flexion 4 Good Abduction (C5) 4 Good External Rotation 4 Good Internal Rotation 4 Good Left Flexion 4- Good- Abduction (C5) 4- Good- External Rotation 4- Good- Internal Rotation 4- Good- Comments Mid trap-3+/5, crepitus and pain, pain with IR PT-OP-Q Treatments Start: 11/30/22 12:18 Freq: Status: Active Protocol: Document 01/10/23 13:31 AM (Rec: 01/10/23 14:17 AM [id number]) Therapeutic Exercises Prone Exercises Plank Prone Exercise Name Plank on knees and on feet Shoulder extension Prone Exercise Name Shoulder extension Side bilateral Resistance on ball Reps/Minutes 2x10 Comments tactile cueing for LT recruitment, cues for cervical posture Sidelying Exercises Sidelying shoulder ER Sidelying Exercise Name Sidelying shoulder ER Side bilateral Resistance 2# Equipment Used towel roll Reps/Minutes x10 ea Standing Exercises Shoulder press Reps/Minutes x5 Shoulder scaption Reps/Minutes x5 Manual Therapy Treatment Soft Tissue Mobilization Shoulder Body Location medial and anterior deltoid Mobilization Type Myofascial Release,Trigger Point Release Intensity/Depth Moderate Joint Mobilizations Scapular mobilization Direction medial, inferior PT-OP-T Assessment and Plan Start: 11/30/22 12:18 Freq: Status: Active Protocol: Document 01/10/23 13:31 AM (Rec: 01/10/23 14:17 AM [id number]) Physical Therapy Assessment Goals Plank Impairment Pt unable to achieve plank position without scapular winging. Short Term Goal (STG) Pt able to hold plank position on knees for 30 seconds with good scapular control. STG Duration 12/20/22 Reflow Operator Goal (LTG) Pt able to hold plank position on feet for 30 seconds with good scapular control. LTG Duration 01/11/23 Pain Impairment Pain rating Impairment Pt reports pain at 7/10 at the worst. Short Term Goal (STG) Pt with 4/10 L shoulder pain at the worst. 01/03/23: Pt reports pain has been at 3/10 at worst. STG Duration 12/20/22 [facility]entiary Goal (LTG) Pt with 2/10 L shoulder pain reported at worst. Pt with 3/10 L shoulder pain at worst. LTG Duration 01/11/23 Quick dash Impairment Shoulder disability Impairment Pt with 27% shoulder disability per Quick dash [facility]entiary Goal (LTG) Pt with less than 15% shoulder disability per Quick dash. LTG Duration 01/11/23 Push-up Impairment Pt unable to do a push-up secondary to discomfort Short Term Goal (STG) Pt able to do 10 wall push-ups without scapular winging. 01/03/23: Goal met, elbows into side STG Duration 12/20/22 Reflow Operator Goal (LTG) Pt able to do modified push-up on knees without scapular winging. LTG Duration 01/11/23 Strength Impairment Rotator cuff strength Impairment Pt with IR/ER strength at 4-/5 . Short Term Goal (STG) Pt with IR/ER shoulder strength at 4/5. 01/03/23. Pt demonstrates scapular winging with IR/ER STG Duration 12/20/22 Reflow Operator Goal (LTG) Pt with IR/ER shoulder strength at 4+/5. 01/10/23: Goal met for IR ( though some discomfort, ER 4/5 . LTG Duration 01/11/23 Independent exercise Impairment Weight-lifting Impairment Pt wants to begin weight training, though unsure if she should and what exercises are safe with shoulder impairment . Penitentiary Goal (LTG) Pt independent with HEP. LTG Duration 01/11/23 Assessment Summary Assessment Pt agreeable to d/c today. Pt made progress towards all LTG. Pt demonstrates improved scapular control, though continues to demonstrate bilateral scapular winging and tipping on occasion. Pt able to correct when cued. Pt demonstrates good understanding of HEP. Physical Therapy Plan Frequency and Duration Frequency of Treatment 1x/Week Duration of treatment (weeks) 6 Plan of Care Start Date 11/30/22 Plan of Care End Date 01/11/23 Therapeutic Interventions Therapeutic Interventions Balance Training,Joint Mobilizations,Manual Therapy, Neuromuscular Re-education, Patient/Caregiver Education, Self-Care/Home Management,Soft Tissue Mobilization,Taping, Therapeutic Activities, Therapeutic Exercises Modalities Cold Pack/Ice Massage,Electric Stimulation,Hot Packs, Ultrasound Next Visit Focus/Plan Next Note Type Discharge Summary Next Visit Plan Pt d/c today with HEP
== END 2023-01-11 12:00 | disposition home or self-care (01) ==
LOC: PHYS 13:30
PROVIDERS: Absent Provider Family Medicine; Family Provider Family Medicine; PCP Family Medicine; Referring Provider Family Medicine; Visit Provider Family Medicine
DX: M25.512 Pain in left shoulder (principal); G89.29 Other chronic pain
CPT/HCPCS: 97110; 97140; 97161

== ENCOUNTER → 2023-02-18 09:55 | Outpatient (CLI) | payer MEDICARE, OTHER, SELFPAY ==
--- NOTE | 2023-02-18 10:03 | DI.RAD.S_ITS ---
PROCEDURE: XR FOOT RT MIN 3V INDICATIONS: INJURY TO RIGHT FOOT TECHNIQUE: 3 views of the foot were acquired. COMPARISON: None. FINDINGS: Bones: No fractures or dislocations. No suspicious bony lesions. Soft tissues: No tibiotalar joint effusion. Achilles tendon appears normal. IMPRESSION: No acute bony abnormality. Approved by: Sourav Huang M.D. on 02/18/2023 at 18:50
== END ==
PROVIDERS: Family Provider Family Medicine; PCP Family Medicine; Referring Provider Naturopath; Visit Provider Naturopath
DX: S99.921A Unspecified injury of right foot, initial encounter (principal); X58.XXXA Exposure to other specified factors, initial encounter
CPT/HCPCS: 73630

== ENCOUNTER → 2023-03-29 11:15 | Outpatient (CLI) | payer MEDICARE, OTHER, SELFPAY ==
[2023-03-29 12:09] LABS: BUN Creatinine Ratio 26.6 (6-22); Blood Urea Nitrogen 17 mg/dL (7-17); Calcium 10.1 mg/dL (8.4-10.2); Carbon Dioxide 30 mmol/L (22-32); Chloride 96 mmol/L (98-107); Estimated Glomerular Filt Rate > 60 mL/min (>60); Glucose 135 mg/dL (80-110); HEMOLYSIS < 15 (0-50); Sodium 134 mmol/L (137-145)
== END ==
LOC: LAB 11:16
PROVIDERS: Family Provider Family Medicine; PCP Family Medicine; Referring Provider Family Medicine; Visit Provider Family Medicine
DX: E11.9 Type 2 diabetes mellitus without complications (principal); M81.0 Age-related osteoporosis without current pathological fracture; E78.2 Mixed hyperlipidemia
CPT/HCPCS: 36415; 80048

== ENCOUNTER → 2023-04-12 08:49 | Outpatient (CLI) | payer MEDICARE, OTHER, SELFPAY ==
--- NOTE | 2023-04-12 08:51 | DI.MRI.S_ITS ---
PROCEDURE: MR ANKLE LT WO/W CON INDICATIONS: GANGLION CYST VS ARTHRITIS TECHNIQUE: Noncontrast sagittal T1 spin echo and T2 fast spin echo with fat saturation, axial proton density fast spin echo and T2 fast spin echo with fat saturation, axial T1 spin echo with fat saturation, coronal T1 spin echo and T2 fast spin echo with fat saturation through the ankle/hindfoot. Post-contrast axial, coronal, and sagittal T1 spin echo with fat saturation through the ankle/hindfoot. COMPARISON: [facility], CR, XR FOOT RT MIN 3V, 02/18/2023, 10:06. FINDINGS: Image quality: Excellent. Bones and joints: [id number] midfoot and hindfoot joint osteoarthritis is seen with joint space narrowing, subchondral sclerosis and marginal osteophyte formation. Mild marrow edema along lateral periphery of lateral malleolus is seen without discrete fracture line. No area of suspicious intraosseous enhancement. No fracture or dislocation. No hindfoot coalitions. Osteochondral injuries are noted involving medial and central weight-bearing portion of talar dome measures 2-3 mm in size with mild surrounding edema. There is small amount of tibiotalar joint effusion, no gross loose bodies. Medial structures: Distal posterior tibialis tendon is thickened with intrasubstance T2 hyperintense signal at the level of distal talus and talonavicular joint. Mild fluid distension of the flexor digitorum longus and flexor hallucis longus tendon sheath is seen along plantar aspect of midfoot extending to the level of TMT joints. The flexor digitorum longus, and flexor hallucis longus tendons are intact. The posterior tibial neurovascular bundle appears normal within the tarsal tunnel, without extrinsic mass effect. The deltoid ligament and spring ligament are mildly thickened. Lateral structures: The anterior talofibular, calcaneofibular, and posterior talofibular ligaments appear intact. More superiorly, the anterior and posterior tibiofibular ligaments appear intact, as is the intermalleolar ligament. The tibiofibular syndesmosis is normal in width at 2 mm or less. The peroneus brevis tendon is intact. The peroneus longus tendon is thickened at the level of lateral malleolus extending to the level of cuboid.. The sinus tarsi demonstrates normal fatty signal, without edema, fibrosis, or cyst formation. Visualized sinus tarsi components (cervical ligament, interosseous talocalcaneal ligament, roots of the inferior extensor retinaculum) appear normal. Anterior structures: The tibialis anterior, extensor hallucis longus, and extensor digitorum longus tendons appear intact. The dorsal talonavicular ligament appears intact. Posterior and plantar structures: Achilles tendon is intact. Medial and lateral bands of the plantar fascia are of normal thickness. No abductor digiti quinti muscle atrophy to suggest Winters neuropathy. No enhancing soft tissue mass or drainable fluid collection is seen IMPRESSION: 1. Low to moderate grade tenosynovitis involving flexor tendons as described above. 2. Low to moderate grade peroneus longus tendinosis and intrasubstance partial-thickness tear at the level of lateral malleolus extending to the level of cuboid. 3. Low-grade medial ankle ligament sprain. 4. Omek-yj-eaduycfe midfoot and hindfoot joint osteoarthritis. Mild contusion involving lateral periphery of lateral malleolus. No fracture or dislocation. Tiny 2-3 mm osteochondral injuries involving medial and mid weight-bearing portion of talar dome. No abnormal intraosseous enhancement. 5. No enhancing soft tissue mass or drainable fluid collection. No discrete ganglion cyst is identified. Dictated by: Paras Kapoor M.D. on 04/12/2023 at 13:52 Approved by: Paras Kapoor M.D. on 04/12/2023 at 14:11
== END ==
LOC: MRI 08:49
PROVIDERS: Family Provider Family Medicine; PCP Family Medicine; Referring Provider Podiatrist; Visit Provider Podiatrist
DX: M19.072 Primary osteoarthritis, left ankle and foot (principal); S93.492A Sprain of other ligament of left ankle, initial encounter; S90.02XA Contusion of left ankle, initial encounter; M65.872 Other synovitis and tenosynovitis, left ankle and foot; M67.472 Ganglion, left ankle and foot; M25.572 Pain in left ankle and joints of left foot
CPT/HCPCS: 73723; A9579

== ENCOUNTER 2023-05-27 13:28 | Outpatient (RCR) | payer MEDICARE, OTHER, SELFPAY ==
--- NOTE | 2023-05-27 14:30 | PT.OIE ---
Current Diagnoses Other instability, left ankle (05/27/23) Pain in left ankle and joints of left foot (05/27/23) Unspecified injury of left ankle, subsequent encounter (05/27/23) Past Medical History (Last Updated 01/03/22 @ 09:15 by Katelyn Anderson DO) Abdominal pain Abnormal chest xray (~05/10/10) Abnormal Pap smear of cervix Back pain Basal cell carcinoma Cervical spine degeneration Chicken pox Colon polyps Dislocation of patella, left, closed Foot pain Headache Hearing loss Heavy menstrual period History of urinary incontinence Hyperlipidemia IgA deficiency Impingement of left ankle joint Internal hemorrhoids (~04/2020) Latent tuberculosis (~04/2010) Migraines Osteoarthritis Osteoporosis Ovarian cyst Painful menstrual periods Pancreatic cyst Squamous cell carcinoma Tuberculosis (~05/12/10) Past Surgical History (Last Reviewed 07/23/21 @ 12:03 by Shelley Marcum MD) Anesthesia History of arthroplasty (~2016) History of bladder surgery (~2019) History of knee surgery History of left knee replacement (~2006) History of lumbar laminectomy (~04/2020) History of sinus surgery History of surgery (~2014) S/P left rotator cuff repair (~2007) Visit Care Team Role Provider Type Katelyn Anderson DO Family Provider Physician Primary Care Provider Specialty: Medical Address: [address] [place] [address], [address], [address] Email: [email or web address] Ramona Curtis DPM Attending Provider Non-Staff Referring Provider Specialty: Podiatry Address: [address] [place] [address], [address] Email: Physical Therapy Initial Evaluation PT-OP-A Visit Information Start: 05/27/23 17:35 Freq: Status: Active Protocol: Document 05/27/23 13:45 DCW (Rec: 05/27/23 17:51 DCW [id number]) Out-Patient Physical Therapy Visit Information Visit Information Visit Type Initial Evaluation Visit Start Time 13:45 Visit Stop Time 14:30 Visit Number 1 Number of ENVIRONMENTAL PROTECTION GEOLOGIST Visits 0 Evaluation Information Evaluation Date 05/27/23 PT-OP-B Current Condition Start: 05/27/23 17:35 Freq: Status: Active Protocol: Document 05/27/23 13:45 DCW (Rec: 05/27/23 17:51 [facility] [id number]) Current Condition History of Current Condition Onset Date Multi-year history Current Complaints Left ankle pain/instability History of Current Condition Pt is a 67 year old female presenting with a long- standing history of left ankle pain and instability. Pt reports she had a left knee replacement many years ago, and has had a lot of problems with her ankle ever since. Reports she will occasionally just take a step and have increased pain or feel like it locks up. Some days are fine, others hurt a lot. Was finally given an MRI, which uncovered tendonitis, partial- thickness peroneal tendon tear , ligament sprain, and mild- moderate mid- and hind-foot OA . Pt reports she was given the option of ankle surgery to improve stability, but would prefer to try more conservative treatment. Notes she goes out walking her dogs every day. Has tried an ankle brace, but that increased her pain. Prior Treatments and Tests Ankle MRI: IMPRESSION: 1. Low to moderate grade tenosynovitis involving flexor tendons as described above. 2 . Low to moderate grade peroneus longus tendinosis and intrasubstance partial- thickness tear at the level of lateral malleolus extending to the level of cuboid. 3. Low -grade medial ankle ligament sprain. 4. Ooed-rj-lwqxjdok midfoot and hindfoot joint osteoarthritis. Mild contusion involving lateral periphery of lateral malleolus . No fracture or dislocation. Tiny 2-3 mm osteochondral injuries involving medial and mid weight-bearing portion of talar dome. No abnormal intraosseous enhancement. 5. No enhancing soft tissue mass or drainable fluid collection. No discrete ganglion cyst is identified. per Nishant Boles on 04/12/2023 Treatment Goals Patient/Caregiver Goals Avoid surgical intervention PT-OP-C Subjective Start: 05/27/23 17:35 Freq: Status: Active Protocol: Document 05/27/23 13:45 DCW (Rec: 05/27/23 17:51 [facility] [id number]) OP-PT Subjective Patient Comments Patient Comments I don't want to have to go for 4-6 weeks non-weight bearing. Patient Questionnaires Foot & Ankle Ability Measure- ADL and Sports FAAM-ADL Score 64/84 = 76.19% FAAM-ADL Impairment 20 to 39% Impaired (Score 50- 66) FAAM-Sport Score 08/12 = 17.86 Lower Extremity Functional Scale LEFS Score 56/80 = 70% LEFS Impairment 20 to 39% Impaired (Score 48- 62) PT-OP-F Manual Assessment Start: 05/27/23 17:35 Freq: Status: Active Protocol: Document 05/27/23 13:45 DCW (Rec: 05/28/23 09:39 DCW [id number]) Manual Assessments Soft Tissue Assessment Soft Tissue Mobility Assessment Increased tone along peroenals , tenderness to palpation 2/4: pain with wincing Joint Mobility Assessment Joint Mobility Assessment Lateral left ankle instability at ATFL PT-OP-K Range of Motion Start: 05/27/23 17:35 Freq: Status: Active Protocol: Document 05/27/23 13:45 DCW (Rec: 05/28/23 09:39 DCW [id number]) Ankle and Foot Goniometric Range of Motion Ankle and Foot Right Active Testing Position Sitting Dorsiflexion with Knee Flexed 7 Dorsiflexion with Knee Extended 5 Plantarflexion 60 Inversion 40 Eversion 25 PT-OP-L Special Tests Start: 05/27/23 17:35 Freq: Status: Active Protocol: Document 05/27/23 13:45 DCW (Rec: 05/27/23 17:53 DCW [id number]) Special Tests Foot/Ankle Special Tests Peroneal Subluxation Test Results Possibly positive left Anterior Draw Test Results Positive left lateral instability PT-OP-M Strength Start: 05/27/23 17:35 Freq: Status: Active Protocol: Document 05/27/23 13:45 DCW (Rec: 05/28/23 09:39 DCW [id number]) Ankle/Foot Strength Ankle and Foot Manual Muscle Testing Left Dorsiflexion (L4) 4 Good Plantarflexion (S1) 4 Good Inversion 4- Good- Eversion (S1) 4- Good- Comments Pain with resisted DF, Inv, Ev PT-OP-Q Treatments Start: 05/27/23 17:35 Freq: Status: Active Protocol: Document 05/27/23 13:45 DCW (Rec: 05/27/23 17:51 DCW [id number]) Therapeutic Exercises Sitting Exercises Plantar Flexion Sitting Exercise Name PF Side left Resistance Lv 2 Inversion Sitting Exercise Name Isometric inversion vs small ball Side bilateral Standing Exercises SLS Standing Exercise Name SLS on AirEx Side left Heel Raises Standing Exercise Name Eccentric heel raises Side left PT-OP-T Assessment and Plan Start: 05/27/23 17:35 Freq: Status: Active Protocol: Document 05/27/23 13:45 DCW (Rec: 05/28/23 09:50 DCW [id number]) Physical Therapy Assessment Rehab Potential Rehabilitation Potential Good Evaluation Complexity Number of Personal Factors/Comorbidities 1-2 Number of Body Systems Impaired 3 Clinical Presentation at Evaluation Unstable Impairments Impairments Balance,Functional Activities, Functional Mobility,Gait,Pain, Soft Tissue Mobility,Strength, Tone Goals Two Impairment Difficulty ambulating without daily pain Assisted Goal (LTG) Pt reports ability to take dogs on usual distance walks on a daily basis without increased pain LTG Duration 07/27/23 One Impairment Pt does not have an appropriate home exercise program Short Term Goal (STG) Pt to be independent and compliant with an appropriate HEP STG Duration 06/27/23 Assessment Summary Assessment Pt presents with signs and symptoms consistent with referring diagnosis. Notable instability at ATFL, positive anterior draw test. Pt exhibits greater than normal ROM in left ankle. Weakness in all tested planes during MMT of ankle, with pain in dorsiflexion, inversion, and eversion. Increased tone and tenderness along peroneals. Should benefit from skilled therapy focusing on improving strength and stability of left ankle joint, as well as focus on lingering ROM deficiencies in left knee s/p TKA. Strengthening and balance training inside of a relatively pain-free motion may help assist patient to put off or eliminate need for future surgical intervention. Physical Therapy Plan Frequency and Duration Frequency of Treatment 2x/Week Plan of Care Start Date 05/27/23 Plan of Care End Date 07/27/23 Therapeutic Interventions Therapeutic Interventions Balance Training,Gait Training ,Home Exercise Program,Manual Therapy,Neuromuscular Re- education,Patient/Caregiver Education,Self-Care/Home Management,Soft Tissue Mobilization,Therapeutic Activities,Therapeutic Exercises Next Visit Focus/Plan Next Note Type Treatment Note Next Visit Plan Ankle strengthening, stabilization activities
--- NOTE | 2023-05-27 14:30 | PT.OPPOC ---
Physical, Occupational & Speech Therapy At Current Diagnoses Other instability, left ankle (05/27/23) Pain in left ankle and joints of left foot (05/27/23) Unspecified injury of left ankle, subsequent encounter (05/27/23) Visit Care Team Role Provider Type Katelyn Anderson DO Family Provider Physician Primary Care Provider Specialty: Medical Address: [address] [place] [address], [address], [place], [address] Email: [email or web address] Ramona Curtis DPM Attending Provider Non-Staff Referring Provider Specialty: Podiatry Address: [address] [place] [address], [id number] Email: Plan Of Care PT-OP-T Assessment and Plan Start: 05/27/23 17:35 Freq: Status: Active Protocol: Document 05/27/23 13:45 DCW (Rec: 05/28/23 09:50 DCW [id number]) Physical Therapy Assessment Rehab Potential Rehabilitation Potential Good Evaluation Complexity Number of Personal Factors/Comorbidities 1-2 Number of Body Systems Impaired 3 Clinical Presentation at Evaluation Unstable Impairments Impairments Balance,Functional Activities, Functional Mobility,Gait,Pain, Soft Tissue Mobility,Strength, Tone Goals Two Impairment Difficulty ambulating without daily pain Jail Goal (LTG) Pt reports ability to take dogs on usual distance walks on a daily basis without increased pain LTG Duration 07/27/23 One Impairment Pt does not have an appropriate home exercise program Short Term Goal (STG) Pt to be independent and compliant with an appropriate HEP STG Duration 06/27/23 Assessment Summary Assessment Pt presents with signs and symptoms consistent with referring diagnosis. Notable instability at ATFL, positive anterior draw test. Pt exhibits greater than normal ROM in left ankle. Weakness in all tested planes during MMT of ankle, with pain in dorsiflexion, inversion, and eversion. Increased tone and tenderness along peroneals. Should benefit from skilled therapy focusing on improving strength and stability of left ankle joint, as well as focus on lingering ROM deficiencies in left knee s/p TKA. Strengthening and balance training inside of a relatively pain-free motion may help assist patient to put off or eliminate need for future surgical intervention. Physical Therapy Plan Frequency and Duration Frequency of Treatment 2x/Week Plan of Care Start Date 05/27/23 Plan of Care End Date 07/27/23 Therapeutic Interventions Therapeutic Interventions Balance Training,Gait Training ,Home Exercise Program,Manual Therapy,Neuromuscular Re- education,Patient/Caregiver Education,Self-Care/Home Management,Soft Tissue Mobilization,Therapeutic Activities,Therapeutic Exercises Next Visit Focus/Plan Next Note Type Treatment Note Next Visit Plan Ankle strengthening, stabilization activities Plan of Care Dates Plan of Care Start Date 05/27/23 Plan of Care End Date 07/27/23 Electronically Signed by: Deniz Munoz, PT 05/28/23 0951 If you are in agreement with this Plan of Care, please return a signed and dated copy. I have reviewed this Plan of Care and certify that the skilled therapy services above are required to meet the patient?s needs. Physician Signature Date Printed Name and Credentials Clinical Instructor Signature Printed Name and Credentials
--- NOTE | 2023-05-31 14:07 | PT-OP ANOTE ---
Pt arrived for her follow-up following her initial evaluation, however requested first to have a discussion regarding her HEP, MRI results, and potential for further injury. After brief discussion, pt noted she would feel better if she was able to get further imaging prior to participating in PT. Therapist recommended requesting stress x-ray due to significant lateral joint laxity. Pt agreeable to get x-ray and return to PT at next cheduled visit in two weeks.
--- NOTE | 2023-08-19 17:40 | PT.OPDS ---
Current Diagnoses Other instability, left ankle (05/27/23) Pain in left ankle and joints of left foot (05/27/23) Unspecified injury of left ankle, subsequent encounter (05/27/23) Visit Care Team Role Provider Type Katelyn Anderson DO Family Provider Physician Primary Care Provider Specialty: Medical Address: [address] [place] [address], [address], [place], [address] Email: [email or web address] Ramona Curtis DPM Attending Provider Non-Staff Referring Provider Specialty: Podiatry Address: [address] [place] [address], [address] Email: Visit Number Visit Number 1 Discharge Summary PT-OP-B Current Condition Start: 05/27/23 17:35 Freq: Status: Active Protocol: Document 05/27/23 13:45 DCW (Rec: 05/27/23 17:51 DCW [id number]) Current Condition History of Current Condition Onset Date Multi-year history Current Complaints Left ankle pain/instability History of Current Condition Pt is a 67 year old female presenting with a long- standing history of left ankle pain and instability. Pt reports she had a left knee replacement many years ago, and has had a lot of problems with her ankle ever since. Reports she will occasionally just take a step and have increased pain or feel like it locks up. Some days are fine, others hurt a lot. Was finally given an MRI, which uncovered tendonitis, partial- thickness peroneal tendon tear , ligament sprain, and mild- moderate mid- and hind-foot OA . Pt reports she was given the option of ankle surgery to improve stability, but would prefer to try more conservative treatment. Notes she goes out walking her dogs every day. Has tried an ankle brace, but that increased her pain. Prior Treatments and Tests Ankle MRI: IMPRESSION: 1. Low to moderate grade tenosynovitis involving flexor tendons as described above. 2 . Low to moderate grade peroneus longus tendinosis and intrasubstance partial- thickness tear at the level of lateral malleolus extending to the level of cuboid. 3. Low -grade medial ankle ligament sprain. 4. Qjcw-iz-qaggcbli midfoot and hindfoot joint osteoarthritis. Mild contusion involving lateral periphery of lateral malleolus . No fracture or dislocation. Tiny 2-3 mm osteochondral injuries involving medial and mid weight-bearing portion of talar dome. No abnormal intraosseous enhancement. 5. No enhancing soft tissue mass or drainable fluid collection. No discrete ganglion cyst is identified. per Nishant Boles on 04/12/2023 Treatment Goals Patient/Caregiver Goals Avoid surgical intervention PT-OP-C Subjective Start: 05/27/23 17:35 Freq: Status: Active Protocol: Document 05/27/23 13:45 DCW (Rec: 05/27/23 17:51 DCW [id number]) OP-PT Subjective Patient Comments Patient Comments I don't want to have to go for 4-6 weeks non-weight bearing. Patient Questionnaires Foot & Ankle Ability Measure- ADL and Sports FAAM-ADL Score 64/84 = 76.19% FAAM-ADL Impairment 20 to 39% Impaired (Score 50- 66) FAAM-Sport Score 08/12 = 17.86 Lower Extremity Functional Scale LEFS Score 56/80 = 70% LEFS Impairment 20 to 39% Impaired (Score 48- 62) PT-OP-F Manual Assessment Start: 05/27/23 17:35 Freq: Status: Active Protocol: Document 05/27/23 13:45 DCW (Rec: 05/28/23 09:39 DCW [id number]) Manual Assessments Soft Tissue Assessment Soft Tissue Mobility Assessment Increased tone along peroenals , tenderness to palpation 2/4: pain with wincing Joint Mobility Assessment Joint Mobility Assessment Lateral left ankle instability at ATFL PT-OP-K Range of Motion Start: 05/27/23 17:35 Freq: Status: Active Protocol: Document 05/27/23 13:45 DCW (Rec: 05/28/23 09:39 DCW [id number]) Ankle and Foot Goniometric Range of Motion Ankle and Foot Right Active Testing Position Sitting Dorsiflexion with Knee Flexed 7 Dorsiflexion with Knee Extended 5 Plantarflexion 60 Inversion 40 Eversion 25 PT-OP-L Special Tests Start: 05/27/23 17:35 Freq: Status: Active Protocol: Document 05/27/23 13:45 DCW (Rec: 05/27/23 17:53 DCW [id number]) Special Tests Foot/Ankle Special Tests Peroneal Subluxation Test Results Possibly positive left Anterior Draw Test Results Positive left lateral instability PT-OP-M Strength Start: 05/27/23 17:35 Freq: Status: Active Protocol: Document 05/27/23 13:45 DCW (Rec: 05/28/23 09:39 DCW [id number]) Ankle/Foot Strength Ankle and Foot Manual Muscle Testing Left Dorsiflexion (L4) 4 Good Plantarflexion (S1) 4 Good Inversion 4- Good- Eversion (S1) 4- Good- Comments Pain with resisted DF, Inv, Ev PT-OP-T Assessment and Plan Start: 05/27/23 17:35 Freq: Status: Active Protocol: Document 08/19/23 17:39 DCW (Rec: 08/19/23 17:40 DCW [id number]) Physical Therapy Assessment Assessment Summary Assessment Pt canceled last remaining follow-up after initial evaluation, has not scheduled any further appointments, and has now not been seen in nearly three months. Pt will be discharged from skilled PT at this time. Physical Therapy Plan Discharge Physical Therapy Discharge Reasons No Longer Attending PT
== END 2023-08-23 12:24 | disposition home or self-care (01) ==
LOC: PHYS 13:28
PROVIDERS: Family Provider Family Medicine; PCP Family Medicine; Referring Provider Podiatrist; Visit Provider Podiatrist
DX: M25.572 Pain in left ankle and joints of left foot (principal); M25.372 Other instability, left ankle; S99.912D Unspecified injury of left ankle, subsequent encounter
CPT/HCPCS: 97110; 97162

== ENCOUNTER → 2023-07-12 10:19 | Outpatient (CLI) | payer MEDICARE, OTHER, SELFPAY ==
[2023-07-12 11:19] LABS: BUN Creatinine Ratio 31.1 (6-22); Blood Urea Nitrogen 19 mg/dL (7-17); Calcium 10.1 mg/dL (8.4-10.2); Carbon Dioxide 31 mmol/L (22-32); Chloride 101 mmol/L (98-107); Estimated Glomerular Filt Rate > 60 mL/min (>60); Glucose 121 mg/dL (80-110); HEMOLYSIS < 15 (0-50); Potassium 4.3 mmol/L (3.4-5.1); Sodium 136 mmol/L (137-145)
== END ==
PROVIDERS: Family Provider Family Medicine; PCP Family Medicine; Referring Provider Family Medicine; Visit Provider Family Medicine
DX: E11.9 Type 2 diabetes mellitus without complications (principal)
CPT/HCPCS: 36415; 80048; 83036

== ENCOUNTER → 2023-07-16 14:56 | Outpatient (CLI) | payer MEDICARE, OTHER, SELFPAY ==
--- NOTE | 2023-07-16 14:57 | DI.RAD.S_ITS ---
PROCEDURE: XR KNEE LT 3V INDICATIONS: left knee pain TECHNIQUE: 3 views of the knee were acquired. COMPARISON: None. FINDINGS: Bones: There is prior left total knee arthroplasty. Left knee alignment is anatomic. No gross hardware loosening or failure. No fractures or dislocations. No suspicious bony lesions. Soft tissues: No joint effusion. No suspicious soft tissue calcifications. IMPRESSION: Prior left total knee arthroplasty with anatomic left knee alignment. No gross hardware loosening or failure. No acute fracture or dislocation. Dictated by: Paras Kapoor M.D. on 07/16/2023 at 20:29 Approved by: Paras Kapoor M.D. on 07/16/2023 at 20:29
== END ==
PROVIDERS: Family Provider Family Medicine; PCP Family Medicine; Referring Provider Family Medicine; Visit Provider Family Medicine
DX: M25.562 Pain in left knee (principal); Z96.652 Presence of left artificial knee joint
CPT/HCPCS: 73562

== ENCOUNTER → 2023-10-14 16:15 | Outpatient (CLI) | payer MEDICARE, OTHER, SELFPAY ==
--- NOTE | 2023-10-14 16:16 | DI.MG.S_ITS ---
BILATERAL DIGITAL SCREENING MAMMOGRAM 3D/2D WITH CAD: 10/14/2023 CLINICAL: Routine screening. Comparison is made to exams dated: 10/09/2022 mammogram, 09/21/2021 mammogram - [facility], and 09/20/2020 mammogram - outside. There are scattered areas of fibroglandular density in both breasts (category b / 25%-50% glandular tissue). Current study was also evaluated with a Computer Aided Detection (CAD) system. No significant masses, calcifications, or other findings are seen in either breast. There has been no significant interval change. IMPRESSION: NEGATIVE There is no mammographic evidence of malignancy. A 1 year screening mammogram is recommended. Based on the Tyrer Cuzick model (a risk assessment model) the patient's lifetime risk is 5.6% and her 10 year risk is 3.6%. According to the ACR, ACS, and NCCN guidelines, an annual breast MRI exam along with mammogram is recommended if the patient's lifetime risk is 20% or greater. This exam was interpreted at Station ID: [id number]. NOTE: For mammograms, a report in lay terms will be sent to the patient. Approximately 15% of breast malignancies will not be visualized mammographically. In the management of a palpable breast mass, a negative mammogram must not discourage biopsy of a clinically suspicious lesion. Electronically Signed By: Melissa michel/riri:10/15/2023 09:51:02 letter sent: Normal Exam ACR BI-RADS Category 1: Negative [id number]
== END ==
PROVIDERS: Family Provider Family Medicine; PCP Family Medicine; Referring Provider Family Medicine; Visit Provider Family Medicine
DX: Z12.31 Encounter for screening mammogram for malignant neoplasm of breast (principal); R92.323 Mammographic fibroglandular density, bilateral breasts
CPT/HCPCS: 77063; 77067

== ENCOUNTER → 2023-10-15 10:31 | Outpatient (CLI) | payer MEDICARE, OTHER, SELFPAY ==
[2023-10-15 12:12] LABS: Hemoglobin A1C% w Est Avg Glu 6.7 % (4.0-6.0)
[2023-10-15 12:26] LABS: Alanine Aminotransferase 17 IU/L (<35); Albumin 4.4 g/dL (3.5-5.0); Albumin Globulin Ratio 2.2 (1.0-2.8); Alkaline Phosphatase 57 U/L (38-126); Aspartate Aminotransferase 23 IU/L (14-36); BUN Creatinine Ratio 27.9 (6-22); Bilirubin Total 0.7 mg/dL (0.2-1.3); Blood Urea Nitrogen 19 mg/dL (7-17); Calcium 9.1 mg/dL (8.4-10.2); Carbon Dioxide 27 mmol/L (22-32); Chloride 100 mmol/L (98-107); Cholesterol 123 mg/dL (140-199); Estimated Glomerular Filt Rate > 60 mL/min (>60); Glucose 114 mg/dL (80-110); HDL Cholesterol 72 mg/dL (40-60); HEMOLYSIS < 15 (0-50); LDL Cholesterol Calculated 37 mg/dL (<100); Potassium 4.6 mmol/L (3.4-5.1); Sodium 134 mmol/L (137-145); Total Protein 6.4 g/dL (6.3-8.2); Triglycerides 69 mg/dL (35-150)
[2023-10-15 12:29] LABS: High Sensitivity CRP - Cardiac 0.5 mg/L (1.0-3.0)
[2023-10-16 09:16] LABS: Immunoglobulin A 52 mg/dL (87-352)
== END ==
PROVIDERS: Family Provider Family Medicine; PCP Family Medicine; Referring Provider Family Medicine; Visit Provider Family Medicine
DX: E11.9 Type 2 diabetes mellitus without complications (principal); D80.2 Selective deficiency of immunoglobulin A [IgA]; E78.5 Hyperlipidemia, unspecified
CPT/HCPCS: 36415; 80053; 80061; 82784; 83036; 86140

== ENCOUNTER → 2023-12-19 17:08 | Outpatient (CLI) | payer MEDICARE, OTHER, SELFPAY ==
--- NOTE | 2023-12-19 17:09 | DI.MRI.S_ITS ---
PROCEDURE: MR LUMBAR SPINE WO CON INDICATIONS: right leg pain/weakness, hx lumbar laminectomy TECHNIQUE: Noncontrast sagittal T1 spin echo and T2 fast echo, sagittal STIR, and T2 fast spin echo through the lumbar spine. In cases with scoliosis, additional coronal T2 fast spin echo may be performed. COMPARISON: [facility], MR, MR LUMBAR SPINE WO CON, 03/16/2020, 7:05. FINDINGS: Image quality: Excellent. Alignment and Curvature: Grade 1 anterolisthesis of L4 on L5. Bone Marrow: Mild edema within the inferior endplate of L2 and posterior inferior endplate of L3, likely representing developing Schmorl's nodes. Otherwise, marrow is of normal overall signal. No acute vertebral body compression fractures. Spinal Cord: Conus medullaris terminates at the L1 level. Visualized cord demonstrates normal signal and size. Paraspinous Soft Tissues: No paravertebral masses. T12-L1: Normal appearance. L1-L2: Mild disc desiccation and disc bulge. No central canal or neural foraminal stenosis. L2-L3: Disc desiccation and mild height loss. Diffuse disc bulge. Facet arthropathy. Mild central canal stenosis. Mild bilateral neural foraminal stenosis. Stable compared to prior. L3-L4: Disc desiccation and minimal disc bulge. Facet hypertrophy and thickening of ligamentum flavum. Mild central canal stenosis is similar to prior. Moderate bilateral neural foraminal stenosis is similar to prior. L4-L5: Anterolisthesis. Disc desiccation. Facet arthropathy. Postsurgical changes with resolution of prior left periarticular cyst. Facet arthropathy and mild thickening of ligamentum flavum. No central canal stenosis. No neural foraminal stenosis. L5-S1: Disc desiccation and moderate height loss. Mild facet arthropathy. No central canal stenosis. Mild bilateral neural foraminal stenosis is stable. IMPRESSION: 1. Multilevel degenerative changes of the lumbar spine as described above. 2. Resolution of left periarticular cyst at L4-5 with resolution of central canal and neural foraminal stenosis at this level. 3. Degenerative changes at other levels are similar compared to prior exam. Mild central canal stenosis at L2-L3 and L3-L4. Moderate bilateral neural foraminal stenosis at L3-L4. Dictated by: Kashif Lama M.D. on 12/20/2023 at 8:47 Approved by: Kashif Lama M.D. on 12/20/2023 at 8:52
== END ==
PROVIDERS: Family Provider Family Medicine; PCP Family Medicine; Referring Provider Family Medicine; Visit Provider Family Medicine
DX: M47.816 Spondylosis without myelopathy or radiculopathy, lumbar region (principal); M47.817 Spondylosis without myelopathy or radiculopathy, lumbosacral region; M48.061 Spinal stenosis, lumbar region without neurogenic claudication; M48.07 Spinal stenosis, lumbosacral region; M54.50 Low back pain, unspecified; M79.604 Pain in right leg; M15.9 Polyosteoarthritis, unspecified; Z98.890 Other specified postprocedural states
CPT/HCPCS: 72148

== ENCOUNTER → 2024-01-09 09:43 | Outpatient (CLI) | payer MEDICARE, OTHER, SELFPAY ==
--- NOTE | 2024-01-09 09:44 | DI.RAD.S_ITS ---
PROCEDURE: XR DEXA AXIAL SKELETON INDICATIONS: bone density screening COMPARISON: [facility], HOSSEIN, XR DEXA AXIAL SKELETON, 05/23/2020, 14:06. FINDINGS: Lumbar Spine: Bone mineral density 0.977 g/cm2, T score -0.6, previously -0.3. Left Hip: Bone mineral density 0.693 g/cm2, T score -2, previously -2.1. Left Femoral Neck: Bone mineral density 0.549 g/cm2, T score -2.7, previously -2.9. Right Hip: Bone mineral density 0.737 g/cm2, T score -1.7, previously -1.6. Right Femoral Neck: Bone mineral density 0.545 g/cm2, T score -2.7, previously -2.2. Fracture Risk Calculation (when applicable): Not reported due to osteoporosis. (T score greater or equal to -1.0 to: NORMAL) (T score from -1.1 to -2.4: OSTEOPENIA) (T score less than or equal to -2.5: OSTEOPOROSIS) IMPRESSION: Osteoporosis. Follow-up guidelines as follows: Osteoporosis: Consider a repeat DEXA and Vertebral Fracture Assessment (VFA) exam in 2 years or sooner if medically necessary, to reassess this patient's status. Osteopenia: Consider a repeat DEXA in 2-3 years to reassess this patient's status, or if there is a new clinical indication. Normal: Consider a repeat DEXA in 5 years or sooner, or if there is a new clinical indication. All treatment decisions require clinical judgment and consideration of individual patient factors, including patient preferences, comorbidities, previous drug use, risk factors not captured in the FRAX model (e.g., frailty, falls, vitamin D deficiency, increased bone turnover, interval significant decline in bone density ) and possible under- or over-estimation of fracture risk by FRAX. In addition, the NOF Guide recommends that FDA-approved medical therapies be considered in postmenopausal women and men age >= 50 years with a: * Hip or vertebral (clinical or morphometric) fracture * T-score of <=-2.5 at the spine or hip * Ten-year fracture probability by FRAX of >= 3% for hip fracture or >=20% for major osteoporotic fracture. People with diagnosed cases of osteoporosis or at high risk for fracture should have regular bone mineral density tests. For patients eligible for Medicare, routine testing is allowed once every 2 years. The testing frequency can be increased to one year for patients who have rapidly progressing disease, those who are receiving or discontinuing medical therapy to restore bone mass, or have additional risk factors. Dictated by: Tyshawn Gallo M.D. on 01/09/2024 at 13:52 Approved by: Tyshawn Gallo M.D. on 01/09/2024 at 13:54
== END ==
LOC: RAD 09:43
PROVIDERS: Family Provider Family Medicine; PCP Family Medicine; Referring Provider Family Medicine; Visit Provider Family Medicine
DX: M81.0 Age-related osteoporosis without current pathological fracture (principal)
CPT/HCPCS: 77080

== ENCOUNTER → 2024-01-31 10:28 | Outpatient (CLI) | payer MEDICARE, OTHER, SELFPAY ==
[2024-01-31 12:14] LABS: Hemoglobin A1C% w Est Avg Glu 6.4 % (4.0-6.0)
[2024-01-31 12:23] LABS: Alanine Aminotransferase 19 IU/L (<35); Albumin 4.3 g/dL (3.5-5.0); Alkaline Phosphatase 49 U/L (38-126); Aspartate Aminotransferase 28 IU/L (14-36); BUN Creatinine Ratio 29.5 (6-22); Bilirubin Total 0.9 mg/dL (0.2-1.3); Blood Urea Nitrogen 18 mg/dL (7-17); Calcium 8.8 mg/dL (8.4-10.2); Carbon Dioxide 28 mmol/L (22-32); Chloride 100 mmol/L (98-107); Estimated Glomerular Filt Rate > 60 mL/min (>60); Globulin 2.1 g/dL (1.7-4.1); Glucose 111 mg/dL (80-110); HEMOLYSIS < 15 (0-50); Sodium 134 mmol/L (137-145); Total Protein 6.4 g/dL (6.3-8.2)
[2024-01-31 12:41] LABS: Vitamin D 25 Hydroxy (D3) 58.4 ng/mL (30.0-100.0)
== END ==
PROVIDERS: Family Provider Family Medicine; PCP Family Medicine; Referring Provider Family Medicine; Visit Provider Family Medicine
DX: E11.9 Type 2 diabetes mellitus without complications (principal); M81.0 Age-related osteoporosis without current pathological fracture; M19.90 Unspecified osteoarthritis, unspecified site; E78.2 Mixed hyperlipidemia; G89.29 Other chronic pain; M54.50 Low back pain, unspecified
CPT/HCPCS: 36415; 80053; 82306; 82523; 82570; 83036

== ENCOUNTER 2024-05-26 13:09 | Outpatient (CLI) | payer MEDICARE, OTHER, SELFPAY ==
[2024-05-26] VITALS (8 sets, daily range): BP systolic 118–165; BP diastolic 67–81; PULSE 62–68; RESP 12–16; TEMP 37.3; O2SAT 95–100
[2024-05-26] MEDS: MIDAZOLAM 2 MG/2 ML VIAL IV (13:42)
[2024-05-26] MEDS: BUPIVACAINE 0.25% (PF) VIAL 2 ML INJ (13:47)
[2024-05-26] MEDS: BETAMETHASONE 30 MG/5 ML MDV 12 MG INJ (13:48)
[2024-05-26] MEDS: iopamidoL 15 ML VIAL 3 ML INJ (13:48)
[2024-05-26] MEDS: MIDAZOLAM 2 MG/2 ML VIAL 1 MG IV (13:49)
[2024-05-26] MEDS: DEXAMETHASONE 10 MG/ML VIAL 20 MG INJ (13:49)
[2024-05-26] MEDS: BETAMETHASONE 30 MG/5 ML MDV 6 MG INJ (13:51)
--- NOTE | 2024-05-26 14:04 | P.PCN_ITS ---
Date/Time/Diagnoses Date of procedure: 05/26/24 Time of procedure: 14:04 Pre-procedure diagnosis: 1. FORAMINAL STENOSIS WITH LE SYMPTOMS Post-procedure diagnosis: same Procedure Notes Procedure: 1. FLUOROSCOPICALLY GUIDED CONTRAST CONTROLLED TRANSFORAMINAL EPIDURAL STEROID INJECTION - RIGHT L4/5 TFESI Indications: Najma is referred by Dr. Anderson for treatment of Foraminal Stenosis with Right LE Symptoms Physician: Ye Enamorado Total Fluoroscopy time (seconds): 12 Total sedation minutes: 19 Complications: none Procedure in detail & Post-procedure care: FINDINGS Foraminal Nerve Root Compression secondary to disc disease and facet hypertrophy DESCRIPTION OF PROCEDURE Following review of allergy and review of potential side effects and complications, including, but not necessarily limited to, infection, allergic reaction, local tissue breakdown, stroke, temporary or permanent nerve injury, paralysis, and possible , the patient indicated that the patient understood and agreed to proceed. An informed consent document was signed by the patient, witnessed by a nurse, and placed in the patient's chart. Additionally, other treatment options including medications, modalities, and physical therapy were reviewed with the patient. After review of previous anaesthesic history and IV conscious sedation the patient was deemed safe to proceed with today?s procedure with IV conscious sedation as ASA class II designation. Safety time-out was performed to confirm patient ID, procedure to be performed and site of procedure. IV sedation was accomplished with a combination of 3mg of Versed was administered by the RN after DO order, titrated to patient comfort during the course of the procedure while the patient remained responsive to all verbal commands In the prone position following sterile prep and drape of the lumbar region, the right L4/5 posterior neuroforamen was identified fluoroscopically. The skin was anesthetized via a 25-gauge 1.5-inch needle with 1% lidocaine solution. At this point, a 25-gauge 3.5-inch spinal needle was atraumatically introduced and advanced under fluoroscopic guidance through the posterior right L4/5 neuroforamen to approximately the anterior aspect of the canal. Depth was confirmed on lateral view. Following negative aspiration, injection of approximately 1.5cc of Isovue 200 under live fluoroscopy in the AP view conf irmed excellent flow along the nerve root, into the epidural space without vascular or intrathecal uptake observed Radiological data, including multiple fluoroscopic views of the lumbosacral spine, reveal a spinal needle at the right L4/5 posterior neuroforamen. Subsequent views show flow of contrast material flowing superiorly and inferiorly along the nerve root confirming epidural flow. Subsequently, a test dose of 1.5 cc of 1% lidocaine solution was administered and patient was observed for two minutes for signs or symptoms of complications, including abdominal pain, shortness of breath, bilateral upper or lower extremity weakness, nausea and vomiting, prior to steroid injection. At this point, a total of 2cc or 10mg of dexamethasone and 6mg of betamethasone was injected without incident. The procedure tolerated the procedure well without signs or symptoms of complications prior to transfer to the recovery area continued monitoring without incident. The patient was then transferred to the recovery area where they were observed for an appropriate time after the injection. The patient reported a VAS score of 7 prior to the procedure and a post- procedure VAS of 0. POST OP INSTRUCTIONS The patient was provided a Pain Log to continue to record their response to the target-specific procedure prior to follow-up visit with their referring ysician. Additionally, specific post-injection care instructions and a contact number to our office were provided if concerns arise regarding possible complications associated with the procedure are suspected.
--- NOTE | 2024-05-26 14:05 | P.PCN_ITS ---
Date/Time/Diagnoses Date of procedure: 06/17/24 Time of procedure: 14:06 Pre-procedure diagnosis: 1. FORAMINAL STENOSIS WITH LE SYMPTOMS Post-procedure diagnosis: same Procedure Notes Procedure: 1. FLUOROSCOPICALLY GUIDED CONTRAST CONTROLLED TRANSFORAMINAL EPIDURAL STEROID INJECTION - RIGHT L3/4 TFESI Indications: Najma is referred by Dr. Anderson for treatment of Foraminal Stenosis with right LE Symptoms Physician: Ye Enamorado Total Fluoroscopy time (seconds): 12 Total sedation minutes: 19 Complications: none Procedure in detail & Post-procedure care: FINDINGS Foraminal Nerve Root Compression secondary to disc disease and facet hypertrophy DESCRIPTION OF PROCEDURE Following review of allergy and review of potential side effects and complications, including, but not necessarily limited to, infection, allergic reaction, local tissue breakdown, stroke, temporary or permanent nerve injury, paralysis, and possible , the patient indicated that the patient understood and agreed to proceed. An informed consent document was signed by the patient, witnessed by a nurse, and placed in the patient's chart. Additionally, other treatment options including medications, modalities, and physical therapy were reviewed with the patient. After review of previous anaesthesic history and IV conscious sedation the patient was deemed safe to proceed with today?s procedure with IV conscious sedation as ASA class II designation. Safety time-out was performed to confirm patient ID, procedure to be performed and site of procedure. IV sedation was accomplished with a combination of 3mg of Versed was administered by the RN after DO order, titrated to patient comfort during the course of the procedure while the patient remained responsive to all verbal commands In the prone position following sterile prep and drape of the lumbar region, the right L3/4 posterior neuroforamen was identified fluoroscopically. The skin was anesthetized via a 25-gauge 1.5-inch needle with 1% lidocaine solution. At this point, a 25-gauge 3.5-inch spinal needle was atraumatically introduced and advanced under fluoroscopic guidance through the posterior right L3/4 neuroforamen to approximately the anterior aspect of the canal. Depth was confirmed on lateral view. Following negative aspiration, injection of approximately 1.5 cc of Isovue 200 under live fluoroscopy in the AP view confir med excellent flow along the nerve root, into the epidural space without vascular or intrathecal uptake observed Radiological data, including multiple fluoroscopic views of the lumbosacral spine, reveal a spinal needle at the right L3/4 posterior neuroforamen. Subsequent views show flow of contrast material flowing superiorly and inferiorly along the nerve root confirming epidural flow. Subsequently, a test dose of 1.5 cc of 1% lidocaine solution was administered and patient was observed for two minutes for signs or symptoms of complications, including abdominal pain, shortness of breath, bilateral upper or lower extremity weakness, nausea and vomiting, prior to steroid injection. At this point, a total of 2cc or 10mg of dexamethasone and 6mg of betamethasone was injected without incident. The patient tolerated the procedure well without signs or symptoms of complications prior to transfer to the recovery area continued monitoring without incident. The patient was then transferred to the recovery area where they were observed for an appropriate time after the injection. The patient reported a VAS score of 7 prior to the procedure and a post-procedure VAS of 0. POST OP INSTRUCTIONS The patient was provided a Pain Log to continue to record their response to the target-specific procedure prior to follow-up visit with their referring physi carmen. Additionally, specific post-injection care instructions and a contact number to our office were provided if concerns arise regarding possible complications associated with the procedure are suspected.
== END 2024-05-26 14:20 | disposition home or self-care (01) ==
PROVIDERS: Family Provider Family Medicine; PCP Family Medicine; Referring Provider Physical Medicine & Rehabilitation; Visit Provider Physical Medicine & Rehabilitation
DX: M48.061 Spinal stenosis, lumbar region without neurogenic claudication (principal); M51.16 Intervertebral disc disorders with radiculopathy, lumbar region; M47.26 Other spondylosis with radiculopathy, lumbar region
CPT/HCPCS: 64483; 64484; 99152; J0702; J1100; J2250; J3490

== ENCOUNTER → 2024-05-30 12:31 | Outpatient (CLI) | payer MEDICARE, OTHER, SELFPAY ==
--- NOTE | 2024-05-30 12:33 | DI.RAD.S_ITS ---
PROCEDURE: XR CERVICAL SPINE 4V OR 5V INDICATIONS: NECK PAIN TECHNIQUE: 4 views of the cervical spine acquired. COMPARISON: None. FINDINGS: Bones: No fractures or dislocations to the T1 level. Oblique images demonstrate no bony foraminal stenoses. Multilevel degenerative changes including reversal cervical curvature are present. Multilevel trace retrolisthesis. Degenerative disc space narrowing is most severe at C4-5, C6-7. Small anterior osteophytes and uncovertebral arthropathy is present. Foraminal narrowing is most prominent the right from C4-5 through C6-7. Soft tissues: No prevertebral soft tissue swelling. IMPRESSION: Multilevel degenerative changes as above. Dictated by: Cristine Goodman M.D. on 05/30/2024 at 13:23 Approved by: Cristine Goodman M.D. on 05/30/2024 at 13:24
== END ==
PROVIDERS: Family Provider Family Medicine; PCP Family Medicine; Referring Provider Physical Medicine & Rehabilitation; Visit Provider Physical Medicine & Rehabilitation
DX: M47.812 Spondylosis without myelopathy or radiculopathy, cervical region (principal); M50.30 Other cervical disc degeneration, unspecified cervical region
CPT/HCPCS: 72050

== ENCOUNTER → 2024-08-05 09:42 | Outpatient (CLI) | payer MEDICARE, OTHER, SELFPAY ==
[2024-08-05 10:28] LABS: Hemoglobin A1C% w Est Avg Glu 6.2 % (4.0-6.0)
[2024-08-05 10:38] LABS: BUN Creatinine Ratio 30.3 (6-22); Blood Urea Nitrogen 20 mg/dL (7-17); Calcium 9.2 mg/dL (8.4-10.2); Carbon Dioxide 27 mmol/L (22-32); Chloride 98 mmol/L (98-107); Estimated Glomerular Filt Rate > 60 mL/min (>60); Glucose 114 mg/dL (70-99); HEMOLYSIS < 15 (0-50); Potassium 4.2 mmol/L (3.4-5.1); Sodium 132 mmol/L (137-145)
== END ==
PROVIDERS: Family Provider Family Medicine; PCP Family Medicine; Referring Provider Family Medicine; Visit Provider Family Medicine
DX: E11.9 Type 2 diabetes mellitus without complications (principal); E78.5 Hyperlipidemia, unspecified
CPT/HCPCS: 36415; 80048; 83036

== ENCOUNTER → 2024-09-08 18:47 | Outpatient (CLI) | payer MEDICARE, OTHER, SELFPAY ==
--- NOTE | 2024-09-08 18:50 | DI.MRI.S_ITS ---
PROCEDURE: MR CERVICAL SPINE WO CON INDICATIONS: Cervical spondylosis with radiculopathy TECHNIQUE: Noncontrast sagittal T1 spin echo and T2 fast spin echo, sagittal STIR, foraminal oblique sagittal T2 fast spin echo, and axial gradient echo or T2 fast spin echo through the cervical spine. COMPARISON: None. FINDINGS: Image quality: Excellent. Alignment and Curvature: There is mild retrolisthesis of C4, C5 and C6. Bone Marrow: Marrow demonstrates normal overall signal. Spinal Cord: Visualized spinal cord has normal size and signal. No cerebellar tonsillar herniation. Paraspinous Soft Tissues: No paravertebral masses. Prevertebral soft tissues are normal in thickness. C2-C3: Normal appearance. C3-C4: There is uncinate process arthropathy with mild left foraminal narrowing C4-C5: There is posterior osteophyte/disc bulge complex as well as uncinate process arthropathy. There is mild bilateral foraminal narrowing, more on the right. C5-C6: There is also posterior osteophyte/disc bulge and uncinate process arthropathy. There is mild to moderate bilateral foraminal narrowing. C6-C7: There is posterior osteophyte/disc bulge complex with mild right foraminal narrowing C7-T1: There is no significant spinal stenosis. IMPRESSION: Multilevel degenerative changes and spondylolisthesis as above. No central spinal stenosis or disc extrusion seen. Dictated by: Gianluca Hannah M.D. on 09/09/2024 at 17:58 Approved by: Gianluca Hannah M.D. on 09/09/2024 at 18:04
== END ==
PROVIDERS: PCP Family Medicine; Referring Provider Physical Medicine & Rehabilitation; Visit Provider Physical Medicine & Rehabilitation
DX: M47.22 Other spondylosis with radiculopathy, cervical region (principal); M43.12 Spondylolisthesis, cervical region
CPT/HCPCS: 72141

== ENCOUNTER 2024-09-17 10:08 | Outpatient (CLI) | payer MEDICARE, OTHER, SELFPAY ==
[2024-09-17] VITALS (8 sets, daily range): BP systolic 121–161; BP diastolic 75–99; PULSE 59–72; RESP 13–18; TEMP 36.4; O2SAT 97–100
[2024-09-17] MEDS: MIDAZOLAM 2 MG/2 ML VIAL IV ×2 (11:25→11:33)
[2024-09-17] MEDS: BUPIVACAINE 0.5% (PF) 10 ML VIAL 5 ML INJ (11:27)
[2024-09-17] MEDS: LIDOCAINE 1% 20 ML 5 ML INJ (11:28)
--- NOTE | 2024-09-17 11:47 | P.PCN_ITS ---
Date/Time/Diagnoses Date of procedure: 09/17/24 Time of procedure: 11:47 Pre-procedure diagnosis: FACET ARTHROPATHY Post-procedure diagnosis: same Procedure Notes Procedure: 1. BILATERAL L3, L4 AND L5 DIAGNOSTIC MB BLOCKS Indications: Najma is referred by Dr. Anderson for treatment of Bilateral Axial LBP. Physician: Ye Enamorado Total Fluoroscopy time (seconds): 8 Total sedation minutes: 14 Complications: none Procedure in detail & Post-procedure care: DESCRIPTION OF PROCEDURE Fluoroscopically guided, contrast-controlled bilateral L3, L4 and L5 medial branch blocks with 0.5cc of 0.5% Marcaine. Following review of allergy and review of potential side effects and complications, including, but not necessarily limited to, infection, allergic reaction, local tissue breakdown, nerve injury, paralysis, stroke and possible , the patient indicated that the patient understood and agreed to proceed. An informed consent document was signed by the patient, witnessed by a nurse, and placed in the patient's chart. After review of previous anaesthesic history and IV conscious sedation the patient was deemed safe to proceed with today's procedure with IV conscious sedation as ASA class II designation. Safety time-out was performed to confirm patient ID, procedure to be performed and site of procedure. IV sedation was accomplished with a combination of 4mg of Versed was administered by the RN aft er DO order, titrated to patient comfort during the course of the procedure while the patient remained responsive to all verbal commands In the prone position, following sterile prep and drape of the lumbar region, the right L3, L4 and L5 anatomical location of the medial branch of the dorsal ramus was identified fluoroscopically. Subsequently an anesthetic skin wheal using 1% lidocaine solution was initiated at each of the anatomical spots. Subsequently then a 22-gauge 3.5-inch spinal needle was atraumatically introduced and advanced under fluoroscopic guidance at each of the corresponding sites at the right L3, L4 and L5 MB. After negative aspiration, 0.2cc of Isovue 200 was injected, confirming placement without vascular or intrathecal uptake. Subsequently then 0.5cc of 0.5% Marcaine solution was injected at each of the corresponding sites at the right L3, L4 and L5 medial branch locations. The identical procedure was replicated on the left. The patient tolerated the procedure well without signs or symptoms of complications. The patient tolerated the procedure well without signs or symptoms of complications prior to transfer to the recovery area continued monitoring wit hout incident. Post-procedure, the patient was monitored initiating provocative activities to measure the amount of relief from block of the facetogenic pain. The patient reported a VAS of 7 prior to the procedure and a post-procedure VAS of 1. It has been a pleasure to assist in the diagnostic and therapeutic care of your patient. POST OP INSTRUCTIONS The patient was provided with a Pain Log to complete over the next several hours and subsequent days prior to the patient's follow up with the ordering physician. If the patient has lamination technician relief to the solution applied, then they may be a candidate for medial branch rhizotomy. The patient is aware, was provided, once again, with a Pain Log and will follow up with the referring physician for review and clinical correlation
== END 2024-09-17 12:20 | disposition home or self-care (01) ==
LOC: RAD 10:09
PROVIDERS: PCP Family Medicine; Referring Provider Family Medicine; Visit Provider Physical Medicine & Rehabilitation
DX: M47.816 Spondylosis without myelopathy or radiculopathy, lumbar region (principal)
CPT/HCPCS: 64493; 64494; 99152; J2250

== ENCOUNTER → 2024-10-14 12:47 | Outpatient (CLI) | payer MEDICARE, OTHER, SELFPAY ==
--- NOTE | 2024-10-14 12:48 | DI.MG.S_ITS ---
MM screening mammo BI: 10/14/2024. BI-RADS: 1 CLINICAL: 69-year old female for bilateral screening mammogram. Tyrer-Cuzick lifetime risk of 3.6%. No personal or first-degree family history of breast cancer. PRIOR EXAMS 10/14/2023, 10/09/2022, 09/21/2021, 09/20/2020. MAMMOGRAPHY TECHNIQUE: 2D and 3D (tomosynthesis) digital mammographic views obtained, with additional images as needed for full coverage. Current study was also evaluated with a Computer Aided Detection (CAD) system. DENSITY C. The breasts are heterogeneously dense, which may obscure small masses. MAMMOGRAPHY FINDINGS Bilateral: No suspicious mass, asymmetry, microcalcification, or other abnormality seen. No significant change from comparison. IMPRESSION: * No evidence of malignancy. RECOMMENDATIONS Bilateral * Annual screening mammography. OVERALL ASSESSMENT CATEGORY BI-RADS-1: Negative. The [employer] recommends annual screening mammography beginning at age 40 for women with average risk of breast cancer. ELECTRONICALLY SIGNED: Maribel Argueta M.D. on 10/14/2024 at 11:29:33 PM PT Interpreting Station ID: [id number]
== END ==
PROVIDERS: PCP Family Medicine; Referring Provider Family Medicine; Visit Provider Family Medicine
DX: Z12.31 Encounter for screening mammogram for malignant neoplasm of breast (principal); M81.0 Age-related osteoporosis without current pathological fracture; R92.333 Mammographic heterogeneous density, bilateral breasts
CPT/HCPCS: 77063; 77067; 82523

== ENCOUNTER 2024-12-01 09:18 | Outpatient (CLI) | payer MEDICARE, OTHER, SELFPAY ==
[2024-12-01] VITALS (10 sets, daily range): BP systolic 105–130; BP diastolic 68–78; PULSE 63–75; RESP 13–21; TEMP 36.2; O2SAT 97–100
[2024-12-01] MEDS: MIDAZOLAM 2 MG/2 ML VIAL IV ×2 (10:38→10:45)
--- NOTE | 2024-12-01 10:57 | P.PCN_ITS ---
Date/Time/Diagnoses Date of procedure: 12/01/24 Time of procedure: 10:57 Pre-procedure diagnosis: 1. CERVICAL STENOSIS, 2. CERVICAL HNP WITH UPPER EXTREMITY RADICULAR FEATURES Post-procedure diagnosis: same Procedure Notes Procedure: 1. FLUORSCOPICALLY GUIDED CONTRAST CONTROLLED INTERLAMINAR EPIDURAL STEROID INJECTION - C6/7 TL SREEDHAR Indications: Najma is referred by Dr. Anderson for treatment of Cervical HNP with Upper Extremity Paresthesias. Physician: Ye Enamorado Total Fluoroscopy time (seconds): 31 Total sedation minutes: 15 Complications: none Procedure in detail & Post-procedure care: FINDINGS Cervical Stenosis due to disc deterioration and nerve root irritation and nerve root irritation DESCRIPTION OF PROCEDURE Fluoroscopically guided, contrast-controlled C6/7 translaminar epidural steroid injection with conscious sedation. Following review of allergy and review of potential side effects and complications, including, but not necessarily limited to, infection, allergic reaction, local tissue breakdown, temporary as well as permanent nerve injury, stroke, paralysis, and possible , the patient indicated that patient understood and agreed to proceed. An informed consent document was signed by the patient, witnessed by a nurse, and placed in the patient's chart. Additionally, other treatment options including modalities, medications, and physical therapy were reviewed with the patient. After review of previous anaesthesic history and IV conscious sedation the patient was deemed safe to proceed with today?s procedure with IV conscious sedation as ASA class II designation. Safety time-out was performed to confirm patient ID, procedure to be performed and site of procedure. IV sedation was accomplished with a combination of 2mg of Versed administered by the RN after DO order, titrated to patient comfort during the course of the procedure while the patient remained responsive to all verbal commands. In the prone position, following sterile prep and drape of the cervical region, the C6/7 translaminar space was identified fluoroscopically. The skin was anesthetized via a 25-gauge 1.5-inch needle with 1% lidocaine solution. At this point, a 25-gauge, 2.5-inch short bevel spinal needle was atraumatically introduced and advanced under fluoroscopic guidance into epidural space at the C6/7 translaminar space. Depth was confirmed on lateral view. Radiological data, including multiple fluoroscopic views of the cervical spine, reveal a spinal needle at the C6/7 translaminar space. Lateral views then show placement of the needle in the epidural space. Subsequent views show contrast material flowing superiorly and inferiorly in the epidural space. DSA fluoroscopy with live contrast injection, once again, confirmed no vascular or intrathecal uptake. At this point, using loss of resistance technique with saline and air, the epidural space was entered. Following negative aspiration, injection of approximately 1.5 cc of Isovue-200 with live fluoroscopy in the AP view confirmed epidural flow in the epidural space without vascular or intrathecal uptake observed. Subsequently, a test dose of 1 cc of 1% lidocaine solution was injected and patient was observed for two minutes without signs or symptoms of complications, including abdominal pain, shortness of breath, bilateral upper or lower extremity weakness, nausea and vomiting, prior to steroid injection. At this point, 2cc or 20mg of dexamethasone was then injected without incident. The patient tolerated the procedure well without signs or symptoms of complica tions prior to being transferred to the recovery area for further monitoring, The patient was then transferred to the recovery area where they were observed for an appropriate period of time after the injection. The patient reported a VAS score of 8 prior to the procedure and a post-procedure VAS of 1. POST OP INSTRUCTIONS The patient was provided a Pain Log to continue to record their response to the target-specific procedure prior to follow-up visit with the referring provider. Additionally, specific post-injection care instructions and a contact number to our office were provided if concerns arise regarding possible complications associated with the procedure are suspected.
== END 2024-12-01 11:20 | disposition home or self-care (01) ==
LOC: RAD 09:19
PROVIDERS: PCP Family Medicine; Referring Provider Family Medicine; Visit Provider Physical Medicine & Rehabilitation
DX: M48.02 Spinal stenosis, cervical region (principal); M50.123 Cervical disc disorder at C6-C7 level with radiculopathy
CPT/HCPCS: 62321; 99152; J1100; J2250

== ENCOUNTER 2025-01-12 10:31 | Outpatient (CLI) | payer MEDICARE, OTHER, SELFPAY ==
[2025-01-12] VITALS (13 sets, daily range): BP systolic 118–155; BP diastolic 74–86; PULSE 59–66; RESP 14–21; TEMP 36.8; O2SAT 98–100
[2025-01-12] MEDS: MIDAZOLAM 2 MG/2 ML VIAL IV (12:15)
[2025-01-12] MEDS: LIDOCAINE 1% 20 ML 5 ML INJ (12:18)
[2025-01-12] MEDS: fentaNYL 100 MCG/2 ML INJ 25 MCG IV ×2 (12:25→12:43)
--- NOTE | 2025-01-12 13:01 | P.PCN_ITS ---
Date/Time/Diagnoses Date of procedure: 01/12/25 Time of procedure: 13:01 Pre-procedure diagnosis: 1. RECALCITRANT FACET ARTHROPATHY Post-procedure diagnosis: same Procedure Notes Procedure: 1. BILATERAL L3, L4 AND L5 MEDIAL BRANCH RADIOFREQUENCY NEUROTOMY Indications: Najma is referred by Dr. Anderson for treatment of facet arthropathy. Physician: Ye Enamorado Total Fluoroscopy time (seconds): 23 Total sedation minutes: 41 Complications: none Procedure in detail & Post-procedure care: DESCRIPTION OF PROCEDURE Bilateral L3, L4 and L5 medial branch radiofrequency neurotomy The patient is well known to this clinic having undergone previous facet injections with good but temporary relief. The patient has experienced appropriate, concordant relief with previous facet and median branch blocks but the patient's pain has been recalcitrant to further conservative measures. Therefore, based upon the patient's relief and persistent symptoms, the patient is considered an appropriate candidate for facet rhizotomy. All of the patient's questions regarding the risks versus benefits of the procedure, including, but not limited to, bleeding, infection, temporary as well as lasting nerve injury, paralysis, stroke, and , as well treatment alternatives were answered to satisfaction. After obtaining informed consent, denial of pertinent drug allergies, as well as being made aware of the potential risks of bleeding, infection, spinal cord trauma, paralysis, temporary and permanent nerve damage, seizure, stroke, and possible , the patient was brought to the fluoroscopy suite and positioned prone on the fluoroscopy table. After review of previous anaesthesic history and IV conscious sedation the patient was deemed safe to proceed with today's procedure with IV conscious sedation as ASA class II designation. Safety time-out was performed to confirm patient ID, procedure to be performed and site of procedure. IV sedation was accomplished with a combination of 2mg of Versed and 50mcg of Fentanyl administered by the RN after DO order, titrated to patient comfort during the course of the procedure while the patient remained responsive to all verbal commands. The lumbar region was prepped in usual sterile fashion and covered with a fenestrated drape in the usual sterile fashion. Appropriate monitors applied including pulse oximeter, pulse, and blood pressure for regular monitoring throughout the procedure. After local infiltration using 1% lidocaine, under fluoroscopic guidance, a 10- cm RF insulated needle with a 10-mm active tip was positioned parallel to the junction of the right the superior articulating process where the L5 medial branch resides. Needle placement was confirmed with motor stimulation of .5v on the right which produced local stimulation without radicular component. The stimulation was then increased to 2v with, once again, only local multifidus stimulation without radicular component. The needle was then removed and the identical procedure was performed along the length of the right L4 medial branch with motor stimulation at .7v on the right. The identical procedure was once again performed along the length of the right L3 and medial branch with motor stimulation of .5v on the right. The medial branches were then anesthetised with 0.5% marcaine. This was then followed by two discreet lesions performed at 80 degrees Celsius for 90 seconds each. The identical procedures were repeated on the left. The patient tolerated the procedure well without signs or symptoms of complications prior to transfer to the recovery area continued monitoring without incident. The patient was then transferred to the recovery area where they were observed for an appropriate period of time after the injection. The patient reported a VAS score of 9 prior to the procedure and a post-procedure VAS of 0. POST OP INSTRUCTIONS The patient was provided a Pain Log to continue to record the patient's response to the target-specific procedure prior to the patient's follow-up visit with the referring physician. Additionally, specific post-injection care instructions and a contact number to our office were provided if concerns arise regarding possible complications associated with the procedure are suspected.
== END 2025-01-12 13:17 | disposition home or self-care (01) ==
LOC: RAD 10:32
PROVIDERS: PCP Family Medicine; Referring Provider Family Medicine; Visit Provider Physical Medicine & Rehabilitation
DX: M47.816 Spondylosis without myelopathy or radiculopathy, lumbar region (principal)
CPT/HCPCS: 64635; 64636; 99152; 99153; J2250; J3010

== ENCOUNTER → 2025-02-25 10:59 | Outpatient (CLI) | payer MEDICARE, OTHER, SELFPAY ==
[2025-02-25 11:51] LABS: Add Manual Diff / Slide Review NO; Hematocrit 39.2 % (36-46); Hemoglobin 13.4 g/dL (12.0-16.0); Lymphocytes Absolute Auto 2300 /uL (1100-4500); Mean Corpuscular HGB Conc 34.2 % (30-36); Mean Corpuscular Hemoglobin 29.7 PG (26-34); Mean Corpuscular Volume 86.9 fL (80-100); Platelet Count 281 X10^3/uL (150-400)
[2025-02-25 11:56] LABS: Hemoglobin A1C% w Est Avg Glu 6.5 % (4.0-6.0)
[2025-02-25 12:10] LABS: Alanine Aminotransferase 15 IU/L (<35); Albumin 4.5 g/dL (3.5-5.0); Albumin Globulin Ratio 2.0 (1.0-2.8); Alkaline Phosphatase 52 U/L (38-126); Blood Urea Nitrogen 19 mg/dL (7-17); Calcium 9.5 mg/dL (8.4-10.2); Carbon Dioxide 26 mmol/L (22-32); Chloride 102 mmol/L (98-107); Cholesterol 145 mg/dL (140-199); Estimated Glomerular Filt Rate > 60 mL/min (>60); Globulin 2.2 g/dL (1.7-4.1); Glucose 117 mg/dL (70-99); HDL Cholesterol 74 mg/dL (40-60); HEMOLYSIS < 15 (0-50); Potassium 4.0 mmol/L (3.4-5.1); Sodium 136 mmol/L (137-145); Total Protein 6.7 g/dL (6.3-8.2); Triglycerides 69 mg/dL (35-150)
[2025-02-25 12:40] LABS: TSH w/ Reflex to FT4 1.77 uIU/mL (0.47-4.68)
[2025-02-25 12:45] LABS: Ferritin 35 ng/mL (11-264)
[2025-02-26 07:09] LABS: CRP, High Sensitivity 0.72 mg/L (0.00-3.00)
== END ==
PROVIDERS: PCP Family Medicine; Referring Provider Family Medicine; Visit Provider Family Medicine
DX: R53.82 Chronic fatigue, unspecified (principal); E11.9 Type 2 diabetes mellitus without complications; E78.5 Hyperlipidemia, unspecified; E03.9 Hypothyroidism, unspecified
CPT/HCPCS: 36415; 80053; 80061; 82728; 83036; 84443; 85025; 86140